=== PATIENT | female | born 1940 | race Caucasian/White ===

== ENCOUNTER 2016-11-22 13:04 | Outpatient (CLI) | payer MEDICARE ==
[2016-11-22 13:25] LABS: Bilirubin Negative (Negative); Blood, Urine Trace (Negative); Clarity Clear (Clear); Glucose, Urine (Dipstick) Negative (Negative); Leukocyte Small (Negative); Nitrite Positive (Negative); Protein, Urine (Dipstick) 100 mg/dL (Neg-Trace); Specific Gravity, Urine 1.015 (1.005-1.030); Urobilinogen 0.2 mg/dL (0.2-1.0); pH, Urine 8.5 (5.0-9.0)
[2016-11-22 13:30] LABS: #Basophils 0.1 thou/uL (0.0-0.2); #Eosinphils 0.1 thou/uL (0.0-0.7); #Lymphocytes 0.9 thou/uL (1.20-3.40); #Monocytes 0.3 thou/uL (0.11-0.59); #Neutrophils 5.2 thou/uL (1.40-6.50); %Basophils 0.8 % (0.0-1.0); %Lymphocytes 13.9 % (21.0-51.0); %Monocytes 5.2 % (0.0-10.0); %Neutrophils 79.1 % (42.0-75.0); Hemoglobin 10.2 g/dL (12.0-16.0); Mean Corpuscular HGB CONC 32.9 g/dL (32.0-36.0); Mean Corpuscular Hemoglobin 30.7 pg (27.0-31.0); Mean Corpuscular Volume 93.3 fl (81.0-99.0); Mean Platelet Volume 7.5 fL (7.4-10.4); Platelet Count 297 thou/uL (130-400); Red Blood Cell (RBC) Count 3.33 mill/uL (4.20-5.40); White Blood Cell (WBC) Count 6.6 thou/uL (4.8-10.8)
[2016-11-22 13:33] LABS: Bacteria/HPF 3+ HPF (None Seen); Squamous Epithelial 0-3 HPF (0-3)
[2016-11-22 13:39] LABS: Anion Gap 17 mmol/L (10-20); BUN (Urea Nitrogen) 30 mg/dL (9.8-20.1); Calc. Creatinine Clearance 0 mL/min (70-130); Calcium 9.6 mg/dL (7.8-10.44); Carbon Dioxide 27 mmol/L (23-31); Chloride 99 mmol/L (98-107); Estimated GFR-MDRD 19; Glucose 128 mg/dL (83-110); Phosphorus 3.2 mg/dL (2.3-4.7); Potassium 3.8 mmol/L (3.5-5.1); Sodium 139 mmol/L (136-145)
== END 2016-11-22 13:05 | disposition home or self-care (01) ==
LOC: MADLAB 13:04
DX: N17.9 Acute kidney failure, unspecified (principal)
CPT/HCPCS: 36415; 80069; 81001; 83970; 85025

== ENCOUNTER 2016-12-08 18:30 | Outpatient (CLI) | payer MEDICARE ==
[2016-12-08 18:43] LABS: Bilirubin Negative (Negative); Blood, Urine Trace (Negative); Clarity Clear (Clear); Glucose, Urine (Dipstick) Negative (Negative); Leukocyte Large (Negative); Nitrite Positive (Negative); Protein, Urine (Dipstick) 100 mg/dL (Neg-Trace); Specific Gravity, Urine 1.015 (1.005-1.030); Urobilinogen 0.2 mg/dL (0.2-1.0); pH, Urine 8.5 (5.0-9.0)
[2016-12-08 18:45] LABS: RBC/HPF 0-3 HPF (0-3)
[2016-12-08 18:46] LABS: Bacteria/HPF 1+ HPF (None Seen); Squamous Epithelial 0-3 HPF (0-3)
== END 2016-12-08 18:31 | disposition home or self-care (01) ==
LOC: MADLAB 18:30
PROVIDERS: ATTEND Family Medicine
DX: N39.0 Urinary tract infection, site not specified (principal)
CPT/HCPCS: 81001; 87077; 87086; 87186

== ENCOUNTER 2016-12-20 14:09 | Outpatient (CLI) | payer MEDICARE ==
[2016-12-20 15:01] LABS: Hemoglobin 8.5 g/dL (12.0-16.0); Mean Corpuscular HGB CONC 33.4 g/dL (32.0-36.0); Mean Corpuscular Hemoglobin 30.7 pg (27.0-31.0); Mean Platelet Volume 6.9 fL (7.4-10.4); Platelet Count 286 thou/uL (130-400); RBC Distribution Width 12.8 % (11.5-14.5); Red Blood Cell (RBC) Count 2.78 mill/uL (4.20-5.40); White Blood Cell (WBC) Count 4.8 thou/uL (4.8-10.8)
[2016-12-20 15:27] LABS: ALT (SGPT) 15 U/L (0-55); AST (SGOT) 22 U/L (5-34); Albumin 3.9 g/dL (3.4-4.8); Alkaline Phosphatase 83 U/L (40-150); Anion Gap 18 mmol/L (10-20); BUN (Urea Nitrogen) 33 mg/dL (9.8-20.1); Bilirubin, Total 0.3 mg/dL (0.2-1.2); Calc. Creatinine Clearance 0 mL/min (70-130); Calcium 8.4 mg/dL (7.8-10.44); Carbon Dioxide 24 mmol/L (23-31); Chloride 104 mmol/L (98-107); Estimated GFR-MDRD 20; Glucose 169 mg/dL (83-110); Potassium 4.2 mmol/L (3.5-5.1); Protein, Total 5.9 g/dL (5.8-8.1); Sodium 142 mmol/L (136-145)
[2016-12-25 21:07] LABS: Transglutaminase IgA ABS Less than 2 U/mL (0-3); Transglutaminase IgG ABS 10 U/mL (0-5)
== END 2016-12-20 14:10 | disposition home or self-care (01) ==
LOC: MADLAB 14:09
PROVIDERS: ATTEND Internal Medicine Gastroenterology
DX: D64.9 Anemia, unspecified (principal); K90.0 Celiac disease
CPT/HCPCS: 36415; 80053; 82607; 82728; 83516; 83540; 83550; 85027

== ENCOUNTER 2017-01-24 15:47 | Outpatient (CLI) | payer MEDICARE ==
[2017-01-24 16:31] LABS: #Lymphocytes 1.6 thou/uL (1.20-3.40); #Monocytes 0.5 thou/uL (0.11-0.59); #Neutrophils 2.8 thou/uL (1.40-6.50); %Eosinophils 0.8 % (0.0-10.0); %Lymphocytes 32.9 % (21.0-51.0); %Monocytes 9.7 % (0.0-10.0); %Neutrophils 55.6 % (42.0-75.0); Hemoglobin 8.9 g/dL (12.0-16.0); Mean Corpuscular HGB CONC 33.2 g/dL (32.0-36.0); Mean Corpuscular Hemoglobin 30.6 pg (27.0-31.0); Mean Corpuscular Volume 92.2 fl (81.0-99.0); Mean Platelet Volume 6.6 fL (7.4-10.4); Platelet Count 266 thou/uL (130-400); RBC Distribution Width 13.2 % (11.5-14.5); Red Blood Cell (RBC) Count 2.93 mill/uL (4.20-5.40); White Blood Cell (WBC) Count 4.9 thou/uL (4.8-10.8)
[2017-01-24 16:35] LABS: ALT (SGPT) 25 U/L (0-55); AST (SGOT) 34 U/L (5-34); Albumin 4.5 g/dL (3.4-4.8); Alkaline Phosphatase 95 U/L (40-150); Anion Gap 16 mmol/L (10-20); BUN (Urea Nitrogen) 37 mg/dL (9.8-20.1); Bilirubin, Total 0.3 mg/dL (0.2-1.2); Calc. Creatinine Clearance 0 mL/min (70-130); Calcium 8.9 mg/dL (7.8-10.44); Carbon Dioxide 23 mmol/L (23-31); Chloride 103 mmol/L (98-107); Estimated GFR-MDRD 20; Globulin 2.5 g/dL (2.4-3.5); Glucose 100 mg/dL (83-110); Potassium 4.2 mmol/L (3.5-5.1); Sodium 138 mmol/L (136-145)
== END 2017-01-24 15:48 ==
LOC: MADLABBHPM 15:47
PROVIDERS: ATTEND Family Medicine
DX: R60.9 Edema, unspecified (principal)
CPT/HCPCS: 80053; 85025

== ENCOUNTER 2017-02-23 10:40 | Emergency (ER) | payer MEDICARE ==
--- NOTE | 2017-02-23 11:41 | RAD ---
RIGHT KNEE FOUR VIEWS: History: Fall, injury, right knee pain. FINDINGS: There are post op changes and metallic hardware in the tibia. Acute fractures of the proximal tibia and fibula are seen with mild displacement. There are degenerative changes in the knee joint. IMPRESSION: Fractures of the proximal tibia and fibula. POS: [facility]
--- NOTE | 2017-02-23 11:42 | RAD ---
RIGHT LEG TWO VIEWS: History: Fall, injury, right leg pain. FINDINGS: There are post op changes and metallic hardware in the distal femur. There are mildly displaced frac tures involving the proximal right tibia and fibula. POS: [facility]
--- NOTE | 2017-02-23 11:51 | RAD ---
PORTABLE AP CHEST: Date: 02-23-17 History: Fracture right tibia and fibula. FINDINGS: Lungs remain hyperexpanded but clear. Nodular density is seen in the right midlung zone which is lik kinsey related to a nipple shadow. Similar symmetric bilateral findings are seen on the prior exam. How ever, follow up chest x-ray with nipple markers may be helpful for further evaluation. Lungs are oth erwise clear. There is osteopenia. IMPRESSION: 1. Hyperexpansion of the lungs which is similar to the prior study. No acute cardiopulmonary process is seen. 2. Nodular density projecting over the right midlung zone most likely attributable to a nipple shado w. Follow up chest x-ray with nipple markers in place is recommended. POS: [facility]
[2017-02-23] MEDS ORDERED: Morphine Sulfate 2 MG/ML SYRINGE ONE (11:57)
[2017-02-23 12:10] LABS: #Monocytes 0.6 thou/uL (0.11-0.59); #Neutrophils 7.2 thou/uL (1.40-6.50); %Basophils 0.5 % (0.0-1.0); %Eosinophils 0.3 % (0.0-10.0); %Lymphocytes 11.6 % (21.0-51.0); %Monocytes 6.7 % (0.0-10.0); %Neutrophils 80.9 % (42.0-75.0); Hemoglobin 7.9 g/dL (12.0-16.0); Mean Corpuscular Hemoglobin 32.4 pg (27.0-31.0); Mean Corpuscular Volume 95.3 fl (81.0-99.0); Mean Platelet Volume 5.5 fL (7.4-10.4); Platelet Count 207 thou/uL (130-400); RBC Distribution Width 13.7 % (11.5-14.5); Red Blood Cell (RBC) Count 2.44 mill/uL (4.20-5.40); White Blood Cell (WBC) Count 8.9 thou/uL (4.8-10.8)
[2017-02-23 12:28] LABS: CKMB 2.2 ng/mL (0-6.6); Troponin I 0.087 ng/mL (< 0.028)
[2017-02-23 13:00] LABS: ALT (SGPT) 17 U/L (0-55); AST (SGOT) 24 U/L (5-34); Albumin 4.3 g/dL (3.4-4.8); Alkaline Phosphatase 87 U/L (40-150); Anion Gap 20 mmol/L (10-20); BUN (Urea Nitrogen) 87 mg/dL (9.8-20.1); Bilirubin, Total 0.4 mg/dL (0.2-1.2); Calc. Creatinine Clearance 0 mL/min (70-130); Calcium 8.8 mg/dL (7.8-10.44); Carbon Dioxide 19 mmol/L (23-31); Chloride 104 mmol/L (98-107); Estimated GFR-MDRD 17; Globulin 2.4 g/dL (2.4-3.5); Glucose 152 mg/dL (83-110); Potassium 6.2 mmol/L (3.5-5.1); Protein, Total 6.7 g/dL (5.8-8.1); Sodium 137 mmol/L (136-145)
[2017-02-23 13:17] LABS: Bilirubin Negative (Negative); Blood, Urine Negative (Negative); Clarity Clear (Clear); Glucose, Urine (Dipstick) Negative (Negative); Leukocyte Negative (Negative); Nitrite Negative (Negative); Protein, Urine (Dipstick) Trace mg/dL (Neg-Trace); Urobilinogen 0.2 mg/dL (0.2-1.0)
== END 2017-02-23 12:33 | disposition short-term general hospital (02) ==
LOC: MADERS 10:40
DX: S82.101A Unspecified fracture of upper end of right tibia, initial encounter for closed fracture (principal); S82.831A Other fracture of upper and lower end of right fibula, initial encounter for closed fracture; I10 Essential (primary) hypertension; W05.0XXA Fall from non-moving wheelchair, initial encounter
CPT/HCPCS: 36415; 51702; 71010; 80053; 81003; 82553; 84484; 85025; 93005; 96374; J2270

== ENCOUNTER 2017-02-28 18:42 | Inpatient (IN) | payer MEDICARE ==
[2017-02-28] MEDS ORDERED: clonazePAM 0.5 MG TAB PO PRN (21:01)
[2017-02-28] MEDS ORDERED: Docusate 100 MG CAP PO PRN (21:15)
[2017-02-28] MEDS ORDERED: Ascorbic Acid 500 mg Chewable Tablet PO SCH (21:45)
[2017-02-28] MEDS ORDERED: Acetaminophen 500 MG TAB PO PRN (22:43)
[2017-02-28] MEDS: traMADol HCl 50 MG TAB PO PRN (23:24)
[2017-02-28] MEDS ORDERED: Acetaminophen 500 MG TAB PO SCH (23:59)
[2017-03-01] MEDS: traMADol HCl 50 MG TAB PO PRN ×5 (04:25→21:44)
[2017-03-01] MEDS: Ondansetron ODT 4 MG TAB PO PRN (04:44)
[2017-03-01] MEDS: Ascorbic Acid 500 mg Chewable Tablet PO SCH ×2 (08:49→20:22)
[2017-03-01] MEDS: Lisinopril 10 MG TAB PO SCH (08:50)
[2017-03-01] MEDS: Ferrous Sulfate 325 MG TAB PO SCH ×2 (08:50→17:41)
[2017-03-01] MEDS ORDERED: traMADol HCl 50 MG TAB PO SCH (09:00)
[2017-03-01] MEDS ORDERED: Mirabegron [Myrbetriq] 50 MG PO SCH (09:00)
[2017-03-01] MEDS ORDERED: Docusate 100 MG CAP PO SCH (09:00)
[2017-03-01] MEDS: METHOCARBAMOL PO PRN ×3 (11:18→20:23)
--- NOTE | 2017-03-01 15:48 | HP ---
DATE OF ADMISSION: 02/28/2017 CHIEF COMPLAINT: Right proximal tibia fracture. HISTORY OF PRESENT ILLNESS: This is a 76-year-old female who is known to my practice that sustained a fall at home on 02/23/2017. The patient was seen in [facility] and transferred to [facility] after being found to have a right proximal tibial fracture. The patient was seen by Dr. Floyd in the emergency room, who deemed the fracture to be unstable and therefore requiring open reduction and internal fixation. The patient went for surgery on 02/24/2017 and had no complications. The patient was maintained on a GRAIN BLENDER pump in the postoperative period for pain control, which was stopped about 24 hours prior to admission here. The patient was then started back on her usual home regimen of tramadol and robaxin. She reports her pain has been uncontrolled. She has been admitted here today to [facility] swing bed for planned physical therapy and occupational therapy. The patient's postoperative course otherwise has been unremarkable. Of note, upon admission to [facility], the patient was found to have acute hyperkalemia with potassium of 6.8 that has since normalized to 3.8 as of 02/28/2017. Additionally, the patient was found to have acute kidney injury with creatinine of 2.85 on 02/23/2017 that has since improved to 1.42. That is near her baseline of chronic kidney disease. The patient states she has been eating well, but continues with her chronic nausea and abdominal pain that is being followed by outpatient director instructional material. She has been having regular bowel movements and tolerating a diet. She has started working with physical therapy since her surgery, but unfortunately is nonweightbearing on the right lower extremity for anticipated duration of 6 weeks. PAST MEDICAL HISTORY: 1. Celiac disease. 2. Hypertension. 3. Osteoarthritis. 4. Urinary incontinence. 5. Esophageal spasms and dysmotility. 6. Failure to thrive. 7. Chronic kidney disease stage 3 secondary to age related nephrosclerosis. 8. History of 6 mm lung nodule found on CT scan in 10/2016. 9. Anxiety. 10. Insomnia. PAST SURGICAL HISTORY: Right proximal tibia open reduction and internal fixation performed on 02/24/2017. Denies any other past surgical history. ALLERGIES: Patient is allergic to CODEINE, LEVOFLOXACIN and MEPERIDINE. FAMILY HISTORY: Noncontributory. SOCIAL HISTORY: The patient lives with her daughter Yong torres, who is a nurse. She is a nonsmoker. She does not drink alcohol or use illicit drugs. She is . She has advanced directives in place of the daughter, will be bringing to the hospital today. She is FULL CODE. MEDICATIONS: 1. Promethazine 25 mg twice daily as needed. 2. Clonidine 0.2 mg daily as needed for systolic blood pressure greater than 160. 3. Zofran 8 mg every 6 hours as needed for nausea, vomiting. 4. Clonazepam 0.5 mg twice daily as needed for anxiety. 5. Tramadol 100 mg 4 times daily as needed for pain. 6. Robaxin 750 mg every 4 hours as needed for pain. 7. Pantoprazole 40 mg twice daily. 8. Hydralazine 25 mg 4 times daily. 9. Amlodipine 5 mg once daily. 10. Metoclopramide 5 mg 4 times daily. 11. Lisinopril 10 mg once daily. 12. Myrbetriq 50 mg once daily. 13. Zolpidem 5 mg once nightly. REVIEW OF SYSTEMS: GENERAL: Denies any fever, chills, weight changes, night sweats. HEENT: Denies any headache, blurry vision, sore throat, runny nose, otalgia. CARDIOVASCULAR: Denies any chest pain, shortness of breath. Positive for edema to bilateral feet. RESPIRATORY: Denies any cough, shortness of breath or wheezing. GASTROINTESTINAL: Positive for chronic nausea. Denies any vomiting, denies any diarrhea or constipation. Denies any blood in her stool. GENITOURINARY: Positive for chronic urinary incontinence. Denies any dysuria or malodorous urine. Denies any hematuria. MUSCULOSKELETAL: Positive for joint pain and neck pain as well as difficulty walking. ENDOCRINOLOGY: Denies any heat or cold intolerance. HEMATOLOGY: Denies any easy bruising or easy bleeding. NEUROLOGIC: Denies any seizure activity or syncope. Denies weakness. PHYSICAL EXAMINATION: VITAL SIGNS: Temperature is 98.1, blood pressure is 147/71, heart rate is 79, respirations are 18, O2 saturation is between 93%-95% on room air. GENERAL: The patient is alert and oriented x3. She is in no apparent distress. She is resting comfortably in her wheelchair. She is cooperative and communicative, no family is at the bedside. HEENT: Pupils are equally round and reactive to light. Extraocular movements are intact. Sclerae nonicteric, conjunctivae nonhyperemic. Oropharynx is moist without erythema or exudates. NECK: Supple, with full range of motion. No thyromegaly. Negative for carotid bruits. CARDIOVASCULAR: Heart is regular rate and rhythm with no murmurs. EXTREMITIES: Positive for 1+ pitting edema to bilateral feet. RESPIRATORY: No distress. LUNGS: Clear to auscultation bilaterally with adequate aeration in equal excursion. GASTROINTESTINAL: Positive for mild distention. Positive for normoactive bowel sounds. ABDOMEN: Nontender to palpation. Negative for rebound or guarding. EXTREMITIES: Right knee with three different incisions with sutures appreciated , wound is clean, dry, and intact without drainage. Positive for some local ecchymosis to the area. NEUROLOGIC: Cranial nerves II-XII are grossly intact. No focal deficits. LABORATORY AND IMAGIN02/28/2017 white blood cell count 5.2, hemoglobin of 8.1, hematocrit 25.2, platelets 169. Sodium 134, potassium 3.8, chloride 94, bicarbonate 33, BUN 33, creatinine 1.42, GFR of 82. Tib-fib x-ray on 2016 indicated mildly displaced fractures involving the proximal right tibia and fibula with knee x-ray, indicating normal placement of the lateral plate and screws transfixing the proximal tibia that was done intraoperatively. ASSESSMENT AND PLAN: This is a 76-year-old female that sustained a ground level fall on 03/2017 resulting in right proximal tibial fracture requiring open reduction and internal fixation on 02/24/2017 and is now admitted to [facility] bed for skilled PT/OT. 1. Status post right tibial fracture with open reduction and internal fixation. The patient will be admitted to this swing bed for planned physical therapy and occupational therapy. The patient is to be toe touch only on the right lower extremity with weightbearing to all other extremities. We will mobilize as able. Fall precautions have been set in place. The patient will have suture removal on 03/06/2017 with follow up with Dr. Floyd in 2-3 weeks. We have placed a fentanyl patch to assist with improved pain control. 2. Acute on chronic kidney disease. The patient initially had acute kidney injury upon admission to [facility]. This has since normalized with IV fluids. We will continue to monitor and avoid nephrotoxic agents. 3. Hyperkalemia. This was found upon admission on 02/23/2017 to [facility]. This has also since corrected and we will continue to monitor. 4. Hypertension. The patient will continue on her home blood pressure medications. She is currently well controlled. 5. Esophageal dysmotility and spasm with chronic nausea. The patient will be continued on her home dose of Reglan and Protonix. We will continue to make Phenergan and Zofran available to her as needed. This is a chronic issue for the patient that is being followed by Dr. Doyle on an outpatient basis. 6. Anxiety. The patient has benefited from clonazepam as needed at home and we will continue this on an inpatient basis. She has not had any side effects or issues with the medication thus far. 7. Chronic insomnia. We will continue the patient on her home dose of Ambien. 8. Urinary incontinence. The patient was recently seen by Urology and started on Myrbetriq. Unfortunately, this medication is not available on formulary and the family will be bringing from home for her to continue while inpatient. 9. History of celiac disease with failure to thrive. We will continue the patient on a gluten free diet and meal supplements with dietary consult pending. 10. History of osteoarthritis and chronic musculoskeletal pain. The patient has been continued on her home tramadol and Robaxin doses. We have also placed a fentanyl patch in an effort to get her acute pain under better control, although I do anticipate that she may require this upon discharge as well due to her pain being uncontrolled prior to this injury. 11. Anemia of chronic disease: Stable as of last CBC on 02/28/17. We will repeat labs in two doses. She did receive transfusion while in [place]. Will anticipate transfusion only if Hg drops below 7. 12. Deep venous thrombosis prophylaxis. The patient has been placed on SCDs. CODE STATUS: FULL. MTDD
[2017-03-02] MEDS: traMADol HCl 50 MG TAB PO PRN ×5 (02:27→23:52)
[2017-03-02] MEDS: Ascorbic Acid 500 mg Chewable Tablet PO SCH ×2 (08:13→21:17)
[2017-03-02] MEDS: Lisinopril 10 MG TAB PO SCH (08:13)
[2017-03-02] MEDS: Ferrous Sulfate 325 MG TAB PO SCH ×2 (08:13→18:54)
[2017-03-02] MEDS: METHOCARBAMOL PO PRN ×3 (10:05→21:32)
[2017-03-02] MEDS ORDERED: Diazepam 2 MG TAB PO SCH (13:15)
[2017-03-02] MEDS ORDERED: Diazepam 5 MG TAB PO SCH (14:15)
[2017-03-03] MEDS: METHOCARBAMOL PO PRN ×5 (01:22→21:53)
[2017-03-03 04:52] LABS: #Basophils 0.1 thou/uL (0.0-0.2); #Eosinphils 0.2 thou/uL (0.0-0.7); #Lymphocytes 1.7 thou/uL (1.20-3.40); #Monocytes 0.7 thou/uL (0.11-0.59); #Neutrophils 3.5 thou/uL (1.40-6.50); %Eosinophils 3.1 % (0.0-10.0); %Lymphocytes 27.5 % (21.0-51.0); %Monocytes 11.4 % (0.0-10.0); Hemoglobin 7.8 g/dL (12.0-16.0); Mean Corpuscular HGB CONC 33.3 g/dL (32.0-36.0); Mean Corpuscular Hemoglobin 31.2 pg (27.0-31.0); Mean Corpuscular Volume 93.5 fl (81.0-99.0); Mean Platelet Volume 6.7 fL (7.4-10.4); Platelet Count 215 thou/uL (130-400); RBC Distribution Width 13.5 % (11.5-14.5); Red Blood Cell (RBC) Count 2.51 mill/uL (4.20-5.40); White Blood Cell (WBC) Count 6.2 thou/uL (4.8-10.8)
[2017-03-03] MEDS: traMADol HCl 50 MG TAB PO PRN ×5 (04:59→21:56)
[2017-03-03 05:10] LABS: ALT (SGPT) 14 U/L (0-55); AST (SGOT) 39 U/L (5-34); Albumin 2.8 g/dL (3.4-4.8); Alkaline Phosphatase 98 U/L (40-150); Anion Gap 16 mmol/L (10-20); BUN (Urea Nitrogen) 42 mg/dL (9.8-20.1); Bilirubin, Total 0.4 mg/dL (0.2-1.2); Calc. Creatinine Clearance 20 mL/min (70-130); Calcium 8.2 mg/dL (7.8-10.44); Carbon Dioxide 29 mmol/L (23-31); Chloride 98 mmol/L (98-107); Estimated GFR-MDRD 28; Globulin 1.9 g/dL (2.4-3.5); Glucose 89 mg/dL (83-110); Potassium 4.6 mmol/L (3.5-5.1); Protein, Total 4.7 g/dL (5.8-8.1); Sodium 138 mmol/L (136-145)
[2017-03-03] MEDS: Ascorbic Acid 500 mg Chewable Tablet PO SCH ×2 (08:28→21:49)
[2017-03-03] MEDS: Lisinopril 10 MG TAB PO SCH (08:29)
[2017-03-03] MEDS: Ferrous Sulfate 325 MG TAB PO SCH ×2 (08:30→17:19)
[2017-03-03] MEDS ORDERED: Diazepam 2 MG TAB PO PRN (11:05)
[2017-03-03] MEDS: Diazepam 5 MG TAB PO PRN ×2 (11:23→19:37)
[2017-03-03] MEDS: Docusate 100 MG CAP PO SCH (21:50)
[2017-03-04] MEDS: Proctozone-HC 2.5% Cream 30 GM TUBE PR SCH ×3 (03:10→21:05)
[2017-03-04] MEDS: traMADol HCl 50 MG TAB PO PRN ×5 (04:17→23:17)
[2017-03-04] MEDS: Ferrous Sulfate 325 MG TAB PO SCH ×2 (08:26→17:29)
[2017-03-04] MEDS: Ascorbic Acid 500 mg Chewable Tablet PO SCH ×2 (08:27→21:04)
[2017-03-04] MEDS: Docusate 100 MG CAP PO SCH ×2 (08:27→21:04)
[2017-03-04] MEDS: Lisinopril 10 MG TAB PO SCH (08:28)
[2017-03-04] MEDS: Diazepam 5 MG TAB PO PRN ×2 (10:53→19:39)
[2017-03-04] MEDS: METHOCARBAMOL PO PRN ×3 (12:18→21:06)
[2017-03-05] MEDS: METHOCARBAMOL PO PRN ×2 (03:30→13:33)
[2017-03-05] MEDS: traMADol HCl 50 MG TAB PO PRN ×4 (06:12→21:16)
[2017-03-05] MEDS: cloNIDine HCl 0.1 MG TAB PO PRN (06:28)
[2017-03-05] MEDS ORDERED: Mag-Al Plus 1200 MG/1200 MG/120 MG/30 ML UDCUP PO SCH (07:45)
[2017-03-05 08:12] LABS: Anion Gap 17 mmol/L (10-20); BUN (Urea Nitrogen) 54 mg/dL (9.8-20.1); Calc. Creatinine Clearance 20 mL/min (70-130); Carbon Dioxide 24 mmol/L (23-31); Chloride 99 mmol/L (98-107); Estimated GFR-MDRD 28; Glucose 113 mg/dL (83-110); Potassium 4.3 mmol/L (3.5-5.1); Sodium 136 mmol/L (136-145)
[2017-03-05 08:23] LABS: #Eosinphils 0.2 thou/uL (0.0-0.7); #Lymphocytes 1.2 thou/uL (1.20-3.40); #Monocytes 0.7 thou/uL (0.11-0.59); #Neutrophils 3.3 thou/uL (1.40-6.50); %Basophils 0.7 % (0.0-1.0); %Lymphocytes 21.5 % (21.0-51.0); %Monocytes 12.9 % (0.0-10.0); %Neutrophils 60.8 % (42.0-75.0); Hemoglobin 7.2 g/dL (12.0-16.0); Mean Corpuscular HGB CONC 33.1 g/dL (32.0-36.0); Mean Corpuscular Hemoglobin 30.9 pg (27.0-31.0); Mean Corpuscular Volume 93.3 fl (81.0-99.0); Mean Platelet Volume 6.2 fL (7.4-10.4); Platelet Count 250 thou/uL (130-400); RBC Distribution Width 13.3 % (11.5-14.5); Red Blood Cell (RBC) Count 2.34 mill/uL (4.20-5.40); White Blood Cell (WBC) Count 5.4 thou/uL (4.8-10.8)
[2017-03-05] MEDS: Ferrous Sulfate 325 MG TAB PO SCH ×2 (09:40→17:06)
[2017-03-05] MEDS: Docusate 100 MG CAP PO SCH ×2 (09:41→21:18)
[2017-03-05] MEDS: Lisinopril 10 MG TAB PO SCH (09:41)
[2017-03-05] MEDS: Ascorbic Acid 500 mg Chewable Tablet PO SCH ×2 (09:41→21:17)
[2017-03-05] MEDS: Proctozone-HC 2.5% Cream 30 GM TUBE PR SCH (09:42)
[2017-03-05] MEDS: Diazepam 5 MG TAB PO PRN ×2 (13:33→23:51)
[2017-03-05] MEDS: Zolpidem Tartrate 5 MG TAB PO PRN (21:17)
[2017-03-06] MEDS: Proctozone-HC 2.5% Cream 30 GM TUBE PR SCH ×2 (00:05→21:52)
[2017-03-06] MEDS: traMADol HCl 50 MG TAB PO PRN ×4 (05:20→23:46)
[2017-03-06] MEDS: METHOCARBAMOL PO PRN ×2 (06:02→14:46)
[2017-03-06] MEDS: Diazepam 5 MG TAB PO PRN ×2 (07:25→17:15)
[2017-03-06] MEDS: Ferrous Sulfate 325 MG TAB PO SCH ×2 (07:25→17:15)
[2017-03-06] MEDS: Ascorbic Acid 500 mg Chewable Tablet PO SCH ×2 (09:41→21:53)
[2017-03-06] MEDS: Docusate 100 MG CAP PO SCH ×3 (09:42→21:56)
[2017-03-06] MEDS: Lisinopril 10 MG TAB PO SCH (09:42)
[2017-03-07] MEDS: METHOCARBAMOL PO PRN ×5 (01:28→23:09)
[2017-03-07] MEDS: Diazepam 5 MG TAB PO PRN ×2 (01:29→21:18)
[2017-03-07] MEDS: Zolpidem Tartrate 5 MG TAB PO PRN (01:29)
[2017-03-07] MEDS: Ferrous Sulfate 325 MG TAB PO SCH ×2 (08:47→17:31)
[2017-03-07] MEDS: Ascorbic Acid 500 mg Chewable Tablet PO SCH ×2 (08:48→17:31)
[2017-03-07] MEDS: Docusate 100 MG CAP PO SCH ×2 (08:48→21:16)
[2017-03-07] MEDS: Lisinopril 10 MG TAB PO SCH (08:48)
[2017-03-07] MEDS: traMADol HCl 50 MG TAB PO PRN ×4 (08:51→21:16)
[2017-03-07] MEDS: Proctozone-HC 2.5% Cream 30 GM TUBE PR SCH (21:20)
[2017-03-08] MEDS: traMADol HCl 50 MG TAB PO PRN ×4 (01:35→22:46)
[2017-03-08] MEDS: Lisinopril 10 MG TAB PO SCH (08:55)
[2017-03-08] MEDS: Docusate 100 MG CAP PO SCH ×2 (08:55→21:32)
[2017-03-08] MEDS: Ascorbic Acid 500 mg Chewable Tablet PO SCH ×2 (08:55→17:45)
[2017-03-08] MEDS: Proctozone-HC 2.5% Cream 30 GM TUBE PR SCH ×2 (08:56→22:47)
[2017-03-08] MEDS: Ferrous Sulfate 325 MG TAB PO SCH ×2 (08:56→17:45)
[2017-03-08] MEDS: METHOCARBAMOL PO PRN ×2 (14:55→22:48)
[2017-03-08] MEDS: Diazepam 5 MG TAB PO PRN (17:44)
[2017-03-09] MEDS: traMADol HCl 50 MG TAB PO PRN ×4 (07:09→20:52)
[2017-03-09] MEDS: METHOCARBAMOL PO PRN ×2 (07:10→16:50)
[2017-03-09] MEDS: Ascorbic Acid 500 mg Chewable Tablet PO SCH ×2 (09:51→16:17)
[2017-03-09] MEDS: Ferrous Sulfate 325 MG TAB PO SCH ×2 (09:51→16:21)
[2017-03-09] MEDS: Proctozone-HC 2.5% Cream 30 GM TUBE PR SCH ×4 (09:51→20:45)
[2017-03-09] MEDS: Docusate 100 MG CAP PO SCH ×3 (09:52→20:46)
[2017-03-09] MEDS: Lisinopril 10 MG TAB PO SCH (09:53)
[2017-03-09] MEDS: Ondansetron ODT 4 MG TAB PO PRN (09:59)
[2017-03-09] MEDS: Diazepam 5 MG TAB PO PRN ×2 (10:00→20:44)
[2017-03-10] MEDS: METHOCARBAMOL PO PRN ×2 (03:10→10:56)
[2017-03-10] MEDS: traMADol HCl 50 MG TAB PO PRN ×4 (04:49→20:25)
[2017-03-10] MEDS: Ascorbic Acid 500 mg Chewable Tablet PO SCH ×2 (08:32→16:24)
[2017-03-10] MEDS: Lisinopril 10 MG TAB PO SCH (08:34)
[2017-03-10] MEDS: Docusate 100 MG CAP PO SCH ×2 (08:36→20:22)
[2017-03-10] MEDS: Proctozone-HC 2.5% Cream 30 GM TUBE PR SCH ×2 (08:38→20:22)
[2017-03-10] MEDS: Ferrous Sulfate 325 MG TAB PO SCH ×2 (08:38→16:24)
[2017-03-10] MEDS: Diazepam 5 MG TAB PO PRN ×2 (10:21→20:21)
[2017-03-10] MEDS: fentaNYL 50 mcg/hour Patch TD SCH (15:47)
[2017-03-11] MEDS: traMADol HCl 50 MG TAB PO PRN ×4 (03:47→23:26)
[2017-03-11] MEDS: Docusate 100 MG CAP PO SCH ×2 (10:09→20:28)
[2017-03-11] MEDS: Ascorbic Acid 500 mg Chewable Tablet PO SCH ×2 (10:09→17:36)
[2017-03-11] MEDS: Ferrous Sulfate 325 MG TAB PO SCH ×2 (10:09→17:36)
[2017-03-11] MEDS: Lisinopril 10 MG TAB PO SCH (10:10)
[2017-03-11] MEDS: Proctozone-HC 2.5% Cream 30 GM TUBE PR SCH ×2 (10:20→20:28)
[2017-03-11] MEDS: Diazepam 5 MG TAB PO PRN ×2 (12:00→17:37)
[2017-03-11] MEDS: METHOCARBAMOL PO PRN (20:28)
[2017-03-12] MEDS: Diazepam 5 MG TAB PO PRN (01:31)
[2017-03-12] MEDS: traMADol HCl 50 MG TAB PO PRN ×3 (04:39→21:34)
[2017-03-12] MEDS: Lisinopril 10 MG TAB PO SCH (09:09)
[2017-03-12] MEDS: Ascorbic Acid 500 mg Chewable Tablet PO SCH ×2 (09:10→17:20)
[2017-03-12] MEDS: Docusate 100 MG CAP PO SCH ×2 (09:10→20:36)
[2017-03-12] MEDS: Ferrous Sulfate 325 MG TAB PO SCH ×2 (09:10→17:20)
[2017-03-12] MEDS: Proctozone-HC 2.5% Cream 30 GM TUBE PR SCH ×2 (09:11→20:36)
[2017-03-12] MEDS ORDERED: Mag-Al Plus 1200 MG/1200 MG/120 MG/30 ML UDCUP PO SCH (19:00)
[2017-03-12] MEDS: cloNIDine HCl 0.1 MG TAB PO PRN (20:34)
[2017-03-12] MEDS: METHOCARBAMOL PO PRN (23:46)
[2017-03-13] MEDS: traMADol HCl 50 MG TAB PO PRN ×3 (01:38→22:54)
[2017-03-13] MEDS: Ascorbic Acid 500 mg Chewable Tablet PO SCH ×2 (09:03→17:14)
[2017-03-13] MEDS: Lisinopril 10 MG TAB PO SCH (09:04)
[2017-03-13] MEDS: Docusate 100 MG CAP PO SCH ×2 (09:04→20:48)
[2017-03-13] MEDS: Ferrous Sulfate 325 MG TAB PO SCH ×2 (09:04→17:15)
[2017-03-13] MEDS: Proctozone-HC 2.5% Cream 30 GM TUBE PR SCH ×2 (09:05→20:49)
[2017-03-13] MEDS: fentaNYL 50 mcg/hour Patch TD SCH (14:39)
[2017-03-13] MEDS: METHOCARBAMOL PO PRN (17:18)
[2017-03-13] MEDS: Diazepam 5 MG TAB PO PRN (19:54)
[2017-03-14] MEDS ORDERED: Mag-Al Plus 1200 MG/1200 MG/120 MG/30 ML UDCUP PO PRN (08:16)
[2017-03-14] MEDS: Ferrous Sulfate 325 MG TAB PO SCH ×2 (08:33→16:04)
[2017-03-14] MEDS: Ascorbic Acid 500 mg Chewable Tablet PO SCH ×2 (08:33→16:05)
[2017-03-14] MEDS: Lisinopril 10 MG TAB PO SCH (08:35)
[2017-03-14] MEDS: Proctozone-HC 2.5% Cream 30 GM TUBE PR SCH ×2 (08:37→21:19)
[2017-03-14] MEDS: Docusate 100 MG CAP PO SCH ×2 (08:37→21:18)
[2017-03-14] MEDS: traMADol HCl 50 MG TAB PO PRN ×2 (08:43→21:24)
[2017-03-14] MEDS ORDERED: Zolpidem Tartrate 5 MG TAB PO PRN (09:57)
[2017-03-14] MEDS: Diazepam 5 MG TAB PO PRN (17:56)
[2017-03-15] MEDS: traMADol HCl 50 MG TAB PO PRN ×2 (04:48→21:58)
[2017-03-15 05:02] LABS: #Basophils 0.1 thou/uL (0.0-0.2); #Eosinphils 0.2 thou/uL (0.0-0.7); #Lymphocytes 1.8 thou/uL (1.20-3.40); #Monocytes 0.5 thou/uL (0.11-0.59); #Neutrophils 3.1 thou/uL (1.40-6.50); %Basophils 0.9 % (0.0-1.0); %Eosinophils 2.9 % (0.0-10.0); %Lymphocytes 32.5 % (21.0-51.0); %Monocytes 9.5 % (0.0-10.0); %Neutrophils 54.3 % (42.0-75.0); Hemoglobin 7.8 g/dL (12.0-16.0); Mean Corpuscular HGB CONC 33.6 g/dL (32.0-36.0); Mean Corpuscular Hemoglobin 31.1 pg (27.0-31.0); Mean Corpuscular Volume 92.8 fl (81.0-99.0); Mean Platelet Volume 6.1 fL (7.4-10.4); Platelet Count 306 thou/uL (130-400); RBC Distribution Width 12.9 % (11.5-14.5); Red Blood Cell (RBC) Count 2.49 mill/uL (4.20-5.40); White Blood Cell (WBC) Count 5.6 thou/uL (4.8-10.8)
[2017-03-15 05:19] LABS: Anion Gap 18 mmol/L (10-20); BUN (Urea Nitrogen) 91 mg/dL (9.8-20.1); Calc. Creatinine Clearance 14 mL/min (70-130); Calcium 8.9 mg/dL (7.8-10.44); Carbon Dioxide 20 mmol/L (23-31); Chloride 101 mmol/L (98-107); Estimated GFR-MDRD 19; Glucose 95 mg/dL (83-110); Potassium 4.4 mmol/L (3.5-5.1); Sodium 135 mmol/L (136-145)
[2017-03-15] MEDS: Ferrous Sulfate 325 MG TAB PO SCH ×2 (08:16→17:11)
[2017-03-15] MEDS: Docusate 100 MG CAP PO SCH ×3 (08:17→22:00)
[2017-03-15] MEDS: Lisinopril 10 MG TAB PO SCH (08:17)
[2017-03-15] MEDS: Ascorbic Acid 500 mg Chewable Tablet PO SCH ×2 (08:17→17:11)
[2017-03-15] MEDS: METHOCARBAMOL PO PRN (08:18)
[2017-03-15] MEDS: Proctozone-HC 2.5% Cream 30 GM TUBE PR SCH (08:19)
[2017-03-15] MEDS: Diazepam 5 MG TAB PO PRN (11:46)
[2017-03-16] MEDS: Proctozone-HC 2.5% Cream 30 GM TUBE PR SCH ×3 (07:09→20:36)
[2017-03-16] MEDS: Docusate 100 MG CAP PO SCH ×2 (08:21→20:36)
[2017-03-16] MEDS: Ascorbic Acid 500 mg Chewable Tablet PO SCH ×2 (08:22→18:15)
[2017-03-16] MEDS: Lisinopril 10 MG TAB PO SCH (08:22)
[2017-03-16] MEDS: traMADol HCl 50 MG TAB PO PRN ×3 (08:23→20:35)
[2017-03-16] MEDS: Ferrous Sulfate 325 MG TAB PO SCH ×2 (08:23→18:14)
[2017-03-16] MEDS: Diazepam 5 MG TAB PO PRN (11:18)
[2017-03-16] MEDS: fentaNYL 50 mcg/hour Patch TD SCH (15:02)
[2017-03-17] MEDS: Docusate 100 MG CAP PO SCH ×2 (08:51→20:36)
[2017-03-17] MEDS: Lisinopril 10 MG TAB PO SCH (08:52)
[2017-03-17] MEDS: Ascorbic Acid 500 mg Chewable Tablet PO SCH ×2 (08:52→16:46)
[2017-03-17] MEDS: Proctozone-HC 2.5% Cream 30 GM TUBE PR SCH ×2 (08:53→20:37)
[2017-03-17] MEDS: Ferrous Sulfate 325 MG TAB PO SCH ×2 (08:53→16:46)
[2017-03-17] MEDS: traMADol HCl 50 MG TAB PO PRN ×3 (09:26→21:19)
[2017-03-17] MEDS: METHOCARBAMOL PO PRN (16:47)
[2017-03-18] MEDS: Lisinopril 10 MG TAB PO SCH (09:18)
[2017-03-18] MEDS: Ascorbic Acid 500 mg Chewable Tablet PO SCH ×2 (09:18→17:21)
[2017-03-18] MEDS: Ferrous Sulfate 325 MG TAB PO SCH ×2 (09:19→17:24)
[2017-03-18] MEDS: traMADol HCl 50 MG TAB PO PRN ×2 (09:19→20:49)
[2017-03-18] MEDS: Docusate 100 MG CAP PO SCH ×2 (09:19→20:42)
[2017-03-18] MEDS: Proctozone-HC 2.5% Cream 30 GM TUBE PR SCH ×2 (09:20→20:41)
[2017-03-18] MEDS: Diazepam 5 MG TAB PO PRN (20:50)
[2017-03-19] MEDS: traMADol HCl 50 MG TAB PO PRN ×3 (03:47→21:01)
[2017-03-19] MEDS: Ascorbic Acid 500 mg Chewable Tablet PO SCH ×2 (08:20→16:06)
[2017-03-19] MEDS: Lisinopril 10 MG TAB PO SCH (08:23)
[2017-03-19] MEDS: Docusate 100 MG CAP PO SCH ×2 (08:23→23:01)
[2017-03-19] MEDS: Ferrous Sulfate 325 MG TAB PO SCH ×2 (08:23→16:07)
[2017-03-19] MEDS: Proctozone-HC 2.5% Cream 30 GM TUBE PR SCH ×2 (08:24→21:03)
[2017-03-19] MEDS: Diazepam 5 MG TAB PO PRN (14:55)
[2017-03-19] MEDS: fentaNYL 50 mcg/hour Patch TD SCH (14:56)
[2017-03-20] MEDS: Ferrous Sulfate 325 MG TAB PO SCH ×2 (09:26→17:50)
[2017-03-20] MEDS: Ascorbic Acid 500 mg Chewable Tablet PO SCH ×2 (09:26→17:50)
[2017-03-20] MEDS: Lisinopril 10 MG TAB PO SCH (09:29)
[2017-03-20] MEDS: traMADol HCl 50 MG TAB PO PRN ×2 (09:30→13:32)
[2017-03-20] MEDS: Docusate 100 MG CAP PO SCH ×2 (09:34→12:26)
[2017-03-20] MEDS: Proctozone-HC 2.5% Cream 30 GM TUBE PR SCH ×2 (09:36→20:43)
[2017-03-20] MEDS ORDERED: fentaNYL 50 mcg/hour Patch TD SCH (17:15)
[2017-03-21] MEDS: traMADol HCl 50 MG TAB PO PRN ×3 (00:22→23:14)
[2017-03-21] MEDS: Diazepam 5 MG TAB PO PRN ×2 (03:57→23:17)
[2017-03-21] MEDS: Lisinopril 10 MG TAB PO SCH (08:32)
[2017-03-21] MEDS: Ascorbic Acid 500 mg Chewable Tablet PO SCH ×2 (08:32→17:25)
[2017-03-21] MEDS: Ferrous Sulfate 325 MG TAB PO SCH ×2 (08:32→17:25)
[2017-03-21] MEDS: Docusate 100 MG CAP PO SCH ×2 (08:33→20:53)
[2017-03-21] MEDS: Proctozone-HC 2.5% Cream 30 GM TUBE PR SCH ×2 (08:34→20:54)
[2017-03-22] MEDS: Ferrous Sulfate 325 MG TAB PO SCH ×2 (08:40→16:53)
[2017-03-22] MEDS: Docusate 100 MG CAP PO SCH ×2 (08:41→21:06)
[2017-03-22] MEDS: Lisinopril 10 MG TAB PO SCH (08:41)
[2017-03-22] MEDS: Ascorbic Acid 500 mg Chewable Tablet PO SCH ×2 (08:42→16:53)
[2017-03-22] MEDS: Proctozone-HC 2.5% Cream 30 GM TUBE PR SCH ×2 (08:42→21:07)
[2017-03-22] MEDS: METHOCARBAMOL PO PRN ×2 (12:07→21:08)
[2017-03-22] MEDS: traMADol HCl 50 MG TAB PO PRN ×2 (13:18→21:20)
[2017-03-22] MEDS: fentaNYL 50 mcg/hour Patch TD SCH (16:49)
[2017-03-22] MEDS: Diazepam 5 MG TAB PO PRN (17:01)
[2017-03-23] MEDS: Ascorbic Acid 500 mg Chewable Tablet PO SCH ×2 (09:22→16:59)
[2017-03-23] MEDS: Lisinopril 10 MG TAB PO SCH (09:22)
[2017-03-23] MEDS: Ferrous Sulfate 325 MG TAB PO SCH ×2 (09:23→16:59)
[2017-03-23] MEDS: Docusate 100 MG CAP PO SCH ×2 (09:23→20:23)
[2017-03-23] MEDS: Proctozone-HC 2.5% Cream 30 GM TUBE PR SCH ×2 (09:26→20:23)
[2017-03-23] MEDS: traMADol HCl 50 MG TAB PO PRN (11:18)
[2017-03-24] MEDS: Docusate 100 MG CAP PO SCH ×2 (08:55→20:55)
[2017-03-24] MEDS: Ferrous Sulfate 325 MG TAB PO SCH ×2 (08:55→17:16)
[2017-03-24] MEDS: Proctozone-HC 2.5% Cream 30 GM TUBE PR SCH ×2 (08:56→20:54)
[2017-03-24] MEDS: Ascorbic Acid 500 mg Chewable Tablet PO SCH ×2 (08:56→17:15)
[2017-03-24] MEDS: Lisinopril 10 MG TAB PO SCH (08:56)
[2017-03-24] MEDS: traMADol HCl 50 MG TAB PO PRN ×3 (10:44→20:53)
[2017-03-24] MEDS: METHOCARBAMOL PO PRN (15:42)
[2017-03-25] MEDS: METHOCARBAMOL PO PRN ×3 (00:13→22:20)
[2017-03-25] MEDS: Lisinopril 10 MG TAB PO SCH (08:21)
[2017-03-25] MEDS: Ferrous Sulfate 325 MG TAB PO SCH ×2 (08:22→16:07)
[2017-03-25] MEDS: Ascorbic Acid 500 mg Chewable Tablet PO SCH ×2 (08:22→16:07)
[2017-03-25] MEDS: Proctozone-HC 2.5% Cream 30 GM TUBE PR SCH ×2 (08:23→20:17)
[2017-03-25] MEDS: Docusate 100 MG CAP PO SCH ×2 (08:24→20:17)
[2017-03-25] MEDS: fentaNYL 50 mcg/hour Patch TD SCH (14:24)
[2017-03-25] MEDS: traMADol HCl 50 MG TAB PO PRN ×2 (16:07→20:16)
[2017-03-26] MEDS: traMADol HCl 50 MG TAB PO PRN ×2 (00:55→20:54)
[2017-03-26] MEDS: Ferrous Sulfate 325 MG TAB PO SCH ×2 (08:34→16:58)
[2017-03-26] MEDS: Lisinopril 10 MG TAB PO SCH (08:34)
[2017-03-26] MEDS: Docusate 100 MG CAP PO SCH ×3 (08:34→20:50)
[2017-03-26] MEDS: Ascorbic Acid 500 mg Chewable Tablet PO SCH ×2 (08:35→16:58)
[2017-03-26] MEDS: Proctozone-HC 2.5% Cream 30 GM TUBE PR SCH ×2 (08:35→20:46)
[2017-03-26] MEDS: METHOCARBAMOL PO PRN (18:12)
[2017-03-27] MEDS: traMADol HCl 50 MG TAB PO PRN ×4 (02:29→22:54)
[2017-03-27] MEDS: Ascorbic Acid 500 mg Chewable Tablet PO SCH ×2 (08:36→16:22)
[2017-03-27] MEDS: Ferrous Sulfate 325 MG TAB PO SCH ×2 (08:37→16:22)
[2017-03-27] MEDS: Docusate 100 MG CAP PO SCH ×2 (08:38→20:18)
[2017-03-27] MEDS: Proctozone-HC 2.5% Cream 30 GM TUBE PR SCH ×2 (08:39→20:19)
[2017-03-27] MEDS: Lisinopril 10 MG TAB PO SCH (08:39)
[2017-03-27] MEDS: Ondansetron ODT 4 MG TAB PO PRN (16:23)
[2017-03-28] MEDS: Lisinopril 10 MG TAB PO SCH (08:52)
[2017-03-28] MEDS: Ferrous Sulfate 325 MG TAB PO SCH ×2 (08:52→17:03)
[2017-03-28] MEDS: Docusate 100 MG CAP PO SCH ×2 (08:52→20:15)
[2017-03-28] MEDS: Proctozone-HC 2.5% Cream 30 GM TUBE PR SCH ×2 (08:53→20:15)
[2017-03-28] MEDS: Ascorbic Acid 500 mg Chewable Tablet PO SCH ×2 (08:53→17:03)
[2017-03-28] MEDS: METHOCARBAMOL PO PRN ×2 (13:02→22:52)
[2017-03-28] MEDS: fentaNYL 50 mcg/hour Patch TD SCH (14:57)
[2017-03-28] MEDS: traMADol HCl 50 MG TAB PO PRN ×2 (15:02→20:13)
[2017-03-29] MEDS: traMADol HCl 50 MG TAB PO PRN ×2 (01:45→21:04)
[2017-03-29 04:57] LABS: #Eosinphils 0.1 thou/uL (0.0-0.7); #Lymphocytes 2.2 thou/uL (1.20-3.40); #Monocytes 0.6 thou/uL (0.11-0.59); #Neutrophils 3.1 thou/uL (1.40-6.50); %Basophils 0.7 % (0.0-1.0); %Eosinophils 2.1 % (0.0-10.0); %Lymphocytes 36.2 % (21.0-51.0); %Monocytes 9.6 % (0.0-10.0); %Neutrophils 51.4 % (42.0-75.0); Hemoglobin 7.4 g/dL (12.0-16.0); Mean Corpuscular HGB CONC 33.3 g/dL (32.0-36.0); Mean Corpuscular Hemoglobin 31.2 pg (27.0-31.0); Mean Corpuscular Volume 93.7 fl (81.0-99.0); Mean Platelet Volume 6.4 fL (7.4-10.4); Platelet Count 215 thou/uL (130-400); RBC Distribution Width 13.3 % (11.5-14.5); Red Blood Cell (RBC) Count 2.38 mill/uL (4.20-5.40); White Blood Cell (WBC) Count 6.1 thou/uL (4.8-10.8)
[2017-03-29 05:27] LABS: Carbon Dioxide 22 mmol/L (23-31); Chloride 102 mmol/L (98-107); Potassium 5.7 mmol/L (3.5-5.1); Sodium 136 mmol/L (136-145)
[2017-03-29 05:28] LABS: Anion Gap 18 mmol/L (10-20)
[2017-03-29 05:29] LABS: ALT (SGPT) 10 U/L (8-55); AST (SGOT) 15 U/L (5-34); Albumin 3.3 g/dL (3.4-4.8); Alkaline Phosphatase 86 U/L (40-150); BUN (Urea Nitrogen) 80 mg/dL (9.8-20.1); Bilirubin, Total 0.3 mg/dL (0.2-1.2); Calc. Creatinine Clearance 12 mL/min (70-130); Calcium 8.7 mg/dL (7.8-10.44); Estimated GFR-MDRD 18; Globulin 2.4 g/dL (2.4-3.5); Glucose 96 mg/dL (83-110); Protein, Total 5.7 g/dL (5.8-8.1)
[2017-03-29] MEDS: Lisinopril 10 MG TAB PO SCH (08:40)
[2017-03-29] MEDS: Ferrous Sulfate 325 MG TAB PO SCH ×2 (08:40→17:32)
[2017-03-29] MEDS: Ascorbic Acid 500 mg Chewable Tablet PO SCH ×2 (08:40→17:32)
[2017-03-29] MEDS: Docusate 100 MG CAP PO SCH ×2 (08:41→14:45)
[2017-03-29] MEDS: Proctozone-HC 2.5% Cream 30 GM TUBE PR SCH ×2 (08:42→20:38)
[2017-03-29] MEDS: METHOCARBAMOL PO PRN ×3 (08:43→23:20)
[2017-03-29] MEDS: Ondansetron ODT 4 MG TAB PO PRN (10:21)
[2017-03-29] MEDS ORDERED: Docusate 100 MG CAP PO PRN (13:37)
[2017-03-30] MEDS: Ferrous Sulfate 325 MG TAB PO SCH ×2 (08:37→16:43)
[2017-03-30] MEDS: Ascorbic Acid 500 mg Chewable Tablet PO SCH ×2 (08:37→16:43)
[2017-03-30] MEDS: Lisinopril 10 MG TAB PO SCH (08:40)
[2017-03-30] MEDS: Proctozone-HC 2.5% Cream 30 GM TUBE PR SCH ×2 (08:41→20:36)
[2017-03-30] MEDS: METHOCARBAMOL PO PRN (11:31)
[2017-03-30] MEDS: traMADol HCl 50 MG TAB PO PRN ×2 (14:29→22:49)
[2017-03-30 18:20] LABS: Anion Gap 19 mmol/L (10-20); BUN (Urea Nitrogen) 76 mg/dL (9.8-20.1); Calc. Creatinine Clearance 12 mL/min (70-130); Calcium 8.5 mg/dL (7.8-10.44); Carbon Dioxide 20 mmol/L (23-31); Chloride 101 mmol/L (98-107); Estimated GFR-MDRD 18; Glucose 123 mg/dL (83-110); Potassium 5.4 mmol/L (3.5-5.1); Sodium 135 mmol/L (136-145)
[2017-03-31] MEDS: Ondansetron ODT 4 MG TAB PO PRN ×2 (06:01→13:12)
[2017-03-31] MEDS: Ferrous Sulfate 325 MG TAB PO SCH ×2 (08:09→17:18)
[2017-03-31] MEDS: Ascorbic Acid 500 mg Chewable Tablet PO SCH ×2 (08:09→17:19)
[2017-03-31] MEDS: Lisinopril 10 MG TAB PO SCH (08:09)
[2017-03-31] MEDS: Proctozone-HC 2.5% Cream 30 GM TUBE PR SCH ×2 (08:14→20:58)
[2017-03-31] MEDS: traMADol HCl 50 MG TAB PO PRN ×2 (13:11→21:02)
[2017-03-31] MEDS: fentaNYL 50 mcg/hour Patch TD SCH (14:28)
[2017-03-31] MEDS: Mirtazapine 15 MG TAB PO SCH (20:58)
[2017-04-01 05:24] LABS: Carbon Dioxide 20 mmol/L (23-31); Chloride 103 mmol/L (98-107); Potassium 5.2 mmol/L (3.5-5.1); Sodium 136 mmol/L (136-145)
[2017-04-01 05:26] LABS: Anion Gap 18 mmol/L (10-20); BUN (Urea Nitrogen) 77 mg/dL (9.8-20.1); Calc. Creatinine Clearance 12 mL/min (70-130); Calcium 8.5 mg/dL (7.8-10.44); Estimated GFR-MDRD 20; Glucose 91 mg/dL (83-110)
[2017-04-01] MEDS: Ascorbic Acid 500 mg Chewable Tablet PO SCH ×2 (08:56→17:21)
[2017-04-01] MEDS: Lisinopril 10 MG TAB PO SCH (08:56)
[2017-04-01] MEDS: Ferrous Sulfate 325 MG TAB PO SCH ×2 (08:57→17:21)
[2017-04-01] MEDS: METHOCARBAMOL PO PRN (11:15)
[2017-04-01] MEDS: Proctozone-HC 2.5% Cream 30 GM TUBE PR SCH ×3 (14:19→20:59)
[2017-04-01] MEDS: Mirtazapine 15 MG TAB PO SCH (20:58)
[2017-04-01] MEDS: traMADol HCl 50 MG TAB PO PRN (20:58)
[2017-04-02] MEDS: Ferrous Sulfate 325 MG TAB PO SCH ×2 (08:08→16:33)
[2017-04-02] MEDS: Ascorbic Acid 500 mg Chewable Tablet PO SCH ×2 (08:08→16:33)
[2017-04-02] MEDS: Lisinopril 10 MG TAB PO SCH (08:09)
[2017-04-02] MEDS: Proctozone-HC 2.5% Cream 30 GM TUBE PR SCH ×2 (08:09→20:56)
[2017-04-02] MEDS: Mirtazapine 15 MG TAB PO SCH (20:53)
[2017-04-02] MEDS: traMADol HCl 50 MG TAB PO PRN (22:17)
[2017-04-03] MEDS: traMADol HCl 50 MG TAB PO PRN ×2 (03:57→22:25)
[2017-04-03] MEDS: Lisinopril 10 MG TAB PO SCH (08:42)
[2017-04-03] MEDS: Ferrous Sulfate 325 MG TAB PO SCH ×2 (08:42→16:15)
[2017-04-03] MEDS: Proctozone-HC 2.5% Cream 30 GM TUBE PR SCH ×2 (08:43→20:24)
[2017-04-03] MEDS: Ascorbic Acid 500 mg Chewable Tablet PO SCH ×2 (08:43→16:15)
[2017-04-03] MEDS: fentaNYL 50 mcg/hour Patch TD SCH (15:11)
[2017-04-03] MEDS: Mirtazapine 15 MG TAB PO SCH (20:24)
[2017-04-04] MEDS: Ferrous Sulfate 325 MG TAB PO SCH ×2 (08:38→16:45)
[2017-04-04] MEDS: Ascorbic Acid 500 mg Chewable Tablet PO SCH ×2 (08:38→16:45)
[2017-04-04] MEDS: Lisinopril 10 MG TAB PO SCH (08:38)
[2017-04-04] MEDS: Proctozone-HC 2.5% Cream 30 GM TUBE PR SCH ×2 (08:39→21:08)
[2017-04-04] MEDS: METHOCARBAMOL PO PRN (15:10)
[2017-04-04] MEDS: Mirtazapine 15 MG TAB PO SCH (20:38)
[2017-04-04] MEDS: traMADol HCl 50 MG TAB PO PRN (20:38)
[2017-04-04] MEDS: Lantiseptic Ointment 130 GM JAR TOP PRN (20:43)
[2017-04-05] MEDS: traMADol HCl 50 MG TAB PO PRN ×2 (01:16→20:49)
[2017-04-05 05:08] LABS: #Eosinphils 0.3 thou/uL (0.0-0.7); #Lymphocytes 2.1 thou/uL (1.20-3.40); #Monocytes 0.6 thou/uL (0.11-0.59); #Neutrophils 3.5 thou/uL (1.40-6.50); %Basophils 0.6 % (0.0-1.0); %Eosinophils 4.1 % (0.0-10.0); %Lymphocytes 32.2 % (21.0-51.0); %Monocytes 8.6 % (0.0-10.0); %Neutrophils 54.5 % (42.0-75.0); Hemoglobin 7.6 g/dL (12.0-16.0); Mean Corpuscular HGB CONC 33.9 g/dL (32.0-36.0); Mean Corpuscular Hemoglobin 31.7 pg (27.0-31.0); Mean Corpuscular Volume 93.6 fl (81.0-99.0); Mean Platelet Volume 6.8 fL (7.4-10.4); Platelet Count 194 thou/uL (130-400); RBC Distribution Width 12.8 % (11.5-14.5); Red Blood Cell (RBC) Count 2.39 mill/uL (4.20-5.40); White Blood Cell (WBC) Count 6.5 thou/uL (4.8-10.8)
[2017-04-05 05:24] LABS: ALT (SGPT) 10 U/L (8-55); AST (SGOT) 15 U/L (5-34); Albumin 3.2 g/dL (3.4-4.8); Alkaline Phosphatase 88 U/L (40-150); Anion Gap 15 mmol/L (10-20); BUN (Urea Nitrogen) 84 mg/dL (9.8-20.1); Bilirubin, Total Less than 0.3 mg/dL (0.2-1.2); Calc. Creatinine Clearance 12 mL/min (70-130); Calcium 8.3 mg/dL (7.8-10.44); Carbon Dioxide 21 mmol/L (23-31); Chloride 105 mmol/L (98-107); Estimated GFR-MDRD 18; Globulin 2.4 g/dL (2.4-3.5); Glucose 98 mg/dL (83-110); Potassium 5.1 mmol/L (3.5-5.1); Protein, Total 5.6 g/dL (6.0-8.3); Sodium 136 mmol/L (136-145)
[2017-04-05] MEDS: Ascorbic Acid 500 mg Chewable Tablet PO SCH ×2 (08:31→16:15)
[2017-04-05] MEDS: Lisinopril 10 MG TAB PO SCH (08:31)
[2017-04-05] MEDS: Ferrous Sulfate 325 MG TAB PO SCH ×2 (08:33→16:15)
[2017-04-05] MEDS: Proctozone-HC 2.5% Cream 30 GM TUBE PR SCH ×2 (08:33→20:45)
[2017-04-05] MEDS: Mirtazapine 15 MG TAB PO SCH (20:45)
[2017-04-06] MEDS: Ferrous Sulfate 325 MG TAB PO SCH ×2 (08:46→17:18)
[2017-04-06] MEDS: Ascorbic Acid 500 mg Chewable Tablet PO SCH ×2 (08:46→17:18)
[2017-04-06] MEDS: Lisinopril 10 MG TAB PO SCH (08:46)
[2017-04-06] MEDS: Proctozone-HC 2.5% Cream 30 GM TUBE PR SCH ×2 (08:48→21:19)
[2017-04-06] MEDS: fentaNYL 50 mcg/hour Patch TD SCH (15:29)
[2017-04-06] MEDS: Mirtazapine 15 MG TAB PO SCH (21:19)
[2017-04-06] MEDS: traMADol HCl 50 MG TAB PO PRN (21:24)
[2017-04-07] MEDS: traMADol HCl 50 MG TAB PO PRN ×2 (02:07→22:00)
[2017-04-07] MEDS: Ferrous Sulfate 325 MG TAB PO SCH ×2 (09:07→17:10)
[2017-04-07] MEDS: Lisinopril 10 MG TAB PO SCH (09:08)
[2017-04-07] MEDS: Ascorbic Acid 500 mg Chewable Tablet PO SCH ×2 (09:09→17:10)
[2017-04-07] MEDS: Proctozone-HC 2.5% Cream 30 GM TUBE PR SCH ×2 (11:59→21:15)
[2017-04-07] MEDS: METHOCARBAMOL PO PRN (12:45)
[2017-04-07] MEDS: Mirtazapine 15 MG TAB PO SCH (21:15)
[2017-04-08] MEDS: traMADol HCl 50 MG TAB PO PRN ×2 (02:34→13:17)
[2017-04-08] MEDS: Lisinopril 10 MG TAB PO SCH (09:03)
[2017-04-08] MEDS: Ascorbic Acid 500 mg Chewable Tablet PO SCH ×2 (09:04→17:54)
[2017-04-08] MEDS: Ferrous Sulfate 325 MG TAB PO SCH ×2 (09:04→17:54)
[2017-04-08] MEDS: Proctozone-HC 2.5% Cream 30 GM TUBE PR SCH ×2 (13:48→21:11)
[2017-04-08] MEDS: Mirtazapine 15 MG TAB PO SCH (21:09)
[2017-04-08] MEDS ORDERED: traMADol HCl 50 MG TAB PO PRN (21:29)
[2017-04-08] MEDS: METHOCARBAMOL PO PRN (21:51)
[2017-04-09] MEDS: Lisinopril 10 MG TAB PO SCH (09:10)
[2017-04-09] MEDS: Ferrous Sulfate 325 MG TAB PO SCH ×2 (09:11→17:16)
[2017-04-09] MEDS: Ascorbic Acid 500 mg Chewable Tablet PO SCH ×2 (09:11→17:15)
[2017-04-09] MEDS: Proctozone-HC 2.5% Cream 30 GM TUBE PR SCH ×2 (09:12→21:00)
[2017-04-09] MEDS: traMADol HCl 50 MG TAB PO PRN ×2 (12:07→21:00)
[2017-04-09] MEDS: METHOCARBAMOL PO PRN (12:09)
[2017-04-09] MEDS: fentaNYL 50 mcg/hour Patch TD SCH (15:29)
[2017-04-09] MEDS: Mirtazapine 15 MG TAB PO SCH (21:00)
[2017-04-10] MEDS: METHOCARBAMOL PO PRN ×2 (00:08→16:10)
[2017-04-10] MEDS: Lisinopril 10 MG TAB PO SCH (08:40)
[2017-04-10] MEDS: Ferrous Sulfate 325 MG TAB PO SCH ×2 (08:41→17:20)
[2017-04-10] MEDS: Ascorbic Acid 500 mg Chewable Tablet PO SCH ×2 (08:42→17:20)
[2017-04-10] MEDS: Proctozone-HC 2.5% Cream 30 GM TUBE PR SCH ×2 (08:42→20:58)
[2017-04-10] MEDS: Mirtazapine 15 MG TAB PO SCH (20:59)
[2017-04-10] MEDS: traMADol HCl 50 MG TAB PO PRN (22:08)
[2017-04-11] MEDS: Ferrous Sulfate 325 MG TAB PO SCH ×2 (08:45→16:48)
[2017-04-11] MEDS: Ascorbic Acid 500 mg Chewable Tablet PO SCH ×2 (08:45→16:48)
[2017-04-11] MEDS: Lisinopril 10 MG TAB PO SCH (08:45)
[2017-04-11] MEDS: METHOCARBAMOL PO PRN (09:49)
[2017-04-11] MEDS: traMADol HCl 50 MG TAB PO PRN ×2 (13:20→21:19)
[2017-04-11] MEDS: Proctozone-HC 2.5% Cream 30 GM TUBE PR SCH ×2 (13:21→21:16)
[2017-04-11] MEDS: fentaNYL 50 mcg/hour Patch TD SCH (16:48)
[2017-04-11] MEDS: Mirtazapine 15 MG TAB PO SCH (21:15)
[2017-04-12] MEDS: Lisinopril 10 MG TAB PO SCH (08:19)
[2017-04-12] MEDS: Ascorbic Acid 500 mg Chewable Tablet PO SCH ×2 (08:19→16:57)
[2017-04-12] MEDS: Ferrous Sulfate 325 MG TAB PO SCH ×2 (08:19→16:57)
[2017-04-12] MEDS: Proctozone-HC 2.5% Cream 30 GM TUBE PR SCH ×2 (08:20→20:12)
[2017-04-12] MEDS: METHOCARBAMOL PO PRN (09:44)
[2017-04-12] MEDS: traMADol HCl 50 MG TAB PO PRN ×2 (11:51→21:50)
[2017-04-12] MEDS: Mirtazapine 15 MG TAB PO SCH (20:11)
[2017-04-13] MEDS: Lisinopril 10 MG TAB PO SCH (08:37)
[2017-04-13] MEDS: Ascorbic Acid 500 mg Chewable Tablet PO SCH ×2 (08:37→16:12)
[2017-04-13] MEDS: Proctozone-HC 2.5% Cream 30 GM TUBE PR SCH ×2 (08:38→21:01)
[2017-04-13] MEDS: Ferrous Sulfate 325 MG TAB PO SCH ×2 (08:38→16:12)
[2017-04-13] MEDS: METHOCARBAMOL PO PRN ×2 (08:41→13:54)
[2017-04-13] MEDS: traMADol HCl 50 MG TAB PO PRN ×2 (10:40→21:00)
[2017-04-13] MEDS: Ondansetron ODT 4 MG TAB PO PRN (10:43)
[2017-04-13] MEDS: Mirtazapine 15 MG TAB PO SCH (20:58)
[2017-04-14] MEDS: Ferrous Sulfate 325 MG TAB PO SCH ×2 (08:33→17:04)
[2017-04-14] MEDS: Ascorbic Acid 500 mg Chewable Tablet PO SCH ×2 (08:33→17:03)
[2017-04-14] MEDS: Lisinopril 10 MG TAB PO SCH (08:36)
[2017-04-14] MEDS: Proctozone-HC 2.5% Cream 30 GM TUBE PR SCH ×2 (08:37→20:20)
[2017-04-14] MEDS: fentaNYL 50 mcg/hour Patch TD SCH (15:34)
[2017-04-14] MEDS: traMADol HCl 50 MG TAB PO PRN (20:17)
[2017-04-14] MEDS: Mirtazapine 15 MG TAB PO SCH (20:17)
[2017-04-15] MEDS: Ascorbic Acid 500 mg Chewable Tablet PO SCH ×2 (08:21→17:20)
[2017-04-15] MEDS: Ferrous Sulfate 325 MG TAB PO SCH ×2 (08:21→17:20)
[2017-04-15] MEDS: Proctozone-HC 2.5% Cream 30 GM TUBE PR SCH ×2 (08:22→20:32)
[2017-04-15] MEDS: Lisinopril 10 MG TAB PO SCH (08:22)
[2017-04-15] MEDS: Mirtazapine 15 MG TAB PO SCH (20:31)
[2017-04-15] MEDS: METHOCARBAMOL PO PRN (20:32)
[2017-04-15] MEDS: traMADol HCl 50 MG TAB PO PRN (21:48)
[2017-04-16] MEDS: Ascorbic Acid 500 mg Chewable Tablet PO SCH ×2 (08:45→16:52)
[2017-04-16] MEDS: Ferrous Sulfate 325 MG TAB PO SCH ×2 (08:45→16:52)
[2017-04-16] MEDS: Proctozone-HC 2.5% Cream 30 GM TUBE PR SCH ×2 (08:46→20:14)
[2017-04-16] MEDS: Lisinopril 10 MG TAB PO SCH (08:46)
[2017-04-16] MEDS: METHOCARBAMOL PO PRN (13:01)
[2017-04-16] MEDS: Mirtazapine 15 MG TAB PO SCH (20:14)
[2017-04-16] MEDS: traMADol HCl 50 MG TAB PO PRN (20:15)
[2017-04-17] MEDS: Lisinopril 10 MG TAB PO SCH (08:46)
[2017-04-17] MEDS: Ferrous Sulfate 325 MG TAB PO SCH ×2 (08:48→17:04)
[2017-04-17] MEDS: Ascorbic Acid 500 mg Chewable Tablet PO SCH ×2 (08:48→17:04)
[2017-04-17] MEDS: Proctozone-HC 2.5% Cream 30 GM TUBE PR SCH ×2 (08:48→20:57)
[2017-04-17] MEDS: METHOCARBAMOL PO PRN (10:51)
[2017-04-17] MEDS: fentaNYL 50 mcg/hour Patch TD SCH (14:31)
[2017-04-17] MEDS: Mirtazapine 15 MG TAB PO SCH (20:55)
[2017-04-17] MEDS: traMADol HCl 50 MG TAB PO PRN (20:56)
[2017-04-18] MEDS: Proctozone-HC 2.5% Cream 30 GM TUBE PR SCH ×2 (09:04→20:36)
[2017-04-18] MEDS: Lisinopril 10 MG TAB PO SCH (09:04)
[2017-04-18] MEDS: Ferrous Sulfate 325 MG TAB PO SCH ×2 (09:05→18:09)
[2017-04-18] MEDS: Ascorbic Acid 500 mg Chewable Tablet PO SCH ×2 (09:05→18:09)
[2017-04-18] MEDS: METHOCARBAMOL PO PRN (10:34)
[2017-04-18] MEDS: Lantiseptic Ointment 130 GM JAR TOP PRN (13:33)
[2017-04-18] MEDS: Mirtazapine 15 MG TAB PO SCH (20:33)
[2017-04-18] MEDS: traMADol HCl 50 MG TAB PO PRN (20:34)
[2017-04-19] MEDS: Ascorbic Acid 500 mg Chewable Tablet PO SCH ×2 (08:50→16:27)
[2017-04-19] MEDS: Ferrous Sulfate 325 MG TAB PO SCH ×2 (08:50→16:28)
[2017-04-19] MEDS: Lisinopril 10 MG TAB PO SCH (08:51)
[2017-04-19] MEDS: Proctozone-HC 2.5% Cream 30 GM TUBE PR SCH ×2 (08:52→20:51)
[2017-04-19] MEDS: METHOCARBAMOL PO PRN ×2 (12:42→19:24)
[2017-04-19] MEDS: Mirtazapine 15 MG TAB PO SCH (20:49)
[2017-04-19] MEDS: traMADol HCl 50 MG TAB PO PRN (20:49)
[2017-04-20] MEDS: Ferrous Sulfate 325 MG TAB PO SCH ×2 (09:41→18:01)
[2017-04-20] MEDS: Ascorbic Acid 500 mg Chewable Tablet PO SCH ×2 (09:42→18:01)
[2017-04-20] MEDS: Lisinopril 10 MG TAB PO SCH (09:42)
[2017-04-20] MEDS: Proctozone-HC 2.5% Cream 30 GM TUBE PR SCH ×2 (09:43→20:45)
[2017-04-20] MEDS: METHOCARBAMOL PO PRN (10:07)
[2017-04-20] MEDS: traMADol HCl 50 MG TAB PO PRN ×2 (14:09→22:03)
[2017-04-20] MEDS: fentaNYL 50 mcg/hour Patch TD SCH (16:06)
[2017-04-20] MEDS: Mirtazapine 15 MG TAB PO SCH (20:45)
[2017-04-21] MEDS: Ascorbic Acid 500 mg Chewable Tablet PO SCH ×2 (09:05→17:08)
[2017-04-21] MEDS: Lisinopril 10 MG TAB PO SCH (09:05)
[2017-04-21] MEDS: Ferrous Sulfate 325 MG TAB PO SCH ×2 (09:06→17:08)
[2017-04-21] MEDS: Proctozone-HC 2.5% Cream 30 GM TUBE PR SCH ×2 (09:06→21:21)
[2017-04-21] MEDS: METHOCARBAMOL PO PRN (10:43)
[2017-04-21] MEDS: traMADol HCl 50 MG TAB PO PRN ×2 (13:11→21:24)
[2017-04-21] MEDS: Mirtazapine 15 MG TAB PO SCH (21:21)
[2017-04-22] MEDS: Ascorbic Acid 500 mg Chewable Tablet PO SCH ×2 (08:53→16:55)
[2017-04-22] MEDS: Ferrous Sulfate 325 MG TAB PO SCH ×2 (08:53→16:55)
[2017-04-22] MEDS: Lisinopril 10 MG TAB PO SCH (08:53)
[2017-04-22] MEDS: Proctozone-HC 2.5% Cream 30 GM TUBE PR SCH ×2 (08:54→20:30)
[2017-04-22] MEDS: traMADol HCl 50 MG TAB PO PRN ×2 (10:56→20:29)
[2017-04-22] MEDS: METHOCARBAMOL PO PRN (12:44)
[2017-04-22] MEDS: Diazepam 5 MG TAB PO PRN (12:49)
[2017-04-22] MEDS: Mirtazapine 15 MG TAB PO SCH (20:28)
[2017-04-23] MEDS: Ferrous Sulfate 325 MG TAB PO SCH ×2 (08:54→16:55)
[2017-04-23] MEDS: Ascorbic Acid 500 mg Chewable Tablet PO SCH ×2 (08:55→16:55)
[2017-04-23] MEDS: Lisinopril 10 MG TAB PO SCH (08:55)
[2017-04-23] MEDS: Proctozone-HC 2.5% Cream 30 GM TUBE PR SCH ×2 (09:05→20:41)
[2017-04-23] MEDS: fentaNYL 50 mcg/hour Patch TD SCH (15:17)
[2017-04-23] MEDS: METHOCARBAMOL PO PRN (18:21)
[2017-04-23] MEDS: Mirtazapine 15 MG TAB PO SCH (20:40)
[2017-04-23] MEDS: traMADol HCl 50 MG TAB PO PRN (20:40)
[2017-04-24] MEDS: Ascorbic Acid 500 mg Chewable Tablet PO SCH ×2 (08:59→16:58)
[2017-04-24] MEDS: Lisinopril 10 MG TAB PO SCH (09:00)
[2017-04-24] MEDS: Ferrous Sulfate 325 MG TAB PO SCH ×2 (09:00→16:58)
[2017-04-24] MEDS: Proctozone-HC 2.5% Cream 30 GM TUBE PR SCH ×2 (09:59→20:37)
[2017-04-24] MEDS: METHOCARBAMOL PO PRN ×3 (10:09→20:27)
[2017-04-24] MEDS: Mirtazapine 15 MG TAB PO SCH (20:26)
[2017-04-24] MEDS: traMADol HCl 50 MG TAB PO PRN (23:35)
[2017-04-25] MEDS: Lisinopril 10 MG TAB PO SCH (08:59)
[2017-04-25] MEDS: Proctozone-HC 2.5% Cream 30 GM TUBE PR SCH ×2 (08:59→20:30)
[2017-04-25] MEDS: Ascorbic Acid 500 mg Chewable Tablet PO SCH ×2 (08:59→17:06)
[2017-04-25] MEDS: Ferrous Sulfate 325 MG TAB PO SCH ×2 (08:59→17:06)
[2017-04-25] MEDS: METHOCARBAMOL PO PRN (11:49)
[2017-04-25] MEDS: traMADol HCl 50 MG TAB PO PRN (20:28)
[2017-04-25] MEDS: Mirtazapine 15 MG TAB PO SCH (20:29)
[2017-04-26] MEDS: Ferrous Sulfate 325 MG TAB PO SCH ×2 (08:21→18:32)
[2017-04-26] MEDS: Ascorbic Acid 500 mg Chewable Tablet PO SCH ×2 (08:21→18:32)
[2017-04-26] MEDS: Lisinopril 10 MG TAB PO SCH (08:21)
[2017-04-26] MEDS: Proctozone-HC 2.5% Cream 30 GM TUBE PR SCH ×2 (08:22→20:44)
[2017-04-26] MEDS: fentaNYL 50 mcg/hour Patch TD SCH (15:29)
[2017-04-26] MEDS: traMADol HCl 50 MG TAB PO PRN ×2 (15:44→20:44)
[2017-04-26] MEDS ORDERED: Furosemide 20 MG TAB PO SCH (16:00)
[2017-04-26] MEDS: Mirtazapine 15 MG TAB PO SCH (20:43)
[2017-04-27] MEDS: Furosemide 20 MG TAB PO SCH (09:18)
[2017-04-27] MEDS: Lisinopril 10 MG TAB PO SCH (09:18)
[2017-04-27] MEDS: Ferrous Sulfate 325 MG TAB PO SCH ×2 (09:19→17:47)
[2017-04-27] MEDS: Proctozone-HC 2.5% Cream 30 GM TUBE PR SCH ×2 (09:19→21:03)
[2017-04-27] MEDS: Ascorbic Acid 500 mg Chewable Tablet PO SCH ×2 (09:19→17:47)
[2017-04-27] MEDS: traMADol HCl 50 MG TAB PO PRN ×2 (14:44→20:55)
[2017-04-27] MEDS: METHOCARBAMOL PO PRN (17:16)
[2017-04-27] MEDS: Mirtazapine 15 MG TAB PO SCH (21:03)
[2017-04-28] MEDS: Furosemide 20 MG TAB PO SCH (09:02)
[2017-04-28] MEDS: Ferrous Sulfate 325 MG TAB PO SCH ×2 (09:02→18:21)
[2017-04-28] MEDS: Lisinopril 10 MG TAB PO SCH (09:02)
[2017-04-28] MEDS: Ascorbic Acid 500 mg Chewable Tablet PO SCH ×2 (09:02→18:21)
[2017-04-28] MEDS: Proctozone-HC 2.5% Cream 30 GM TUBE PR SCH ×2 (09:03→20:21)
[2017-04-28] MEDS: METHOCARBAMOL PO PRN (13:29)
[2017-04-28] MEDS: Mirtazapine 15 MG TAB PO SCH (20:21)
[2017-04-28] MEDS: traMADol HCl 50 MG TAB PO PRN (20:21)
[2017-04-29] MEDS: Ascorbic Acid 500 mg Chewable Tablet PO SCH ×2 (08:54→17:39)
[2017-04-29] MEDS: Lisinopril 10 MG TAB PO SCH (08:54)
[2017-04-29] MEDS: Ferrous Sulfate 325 MG TAB PO SCH ×2 (08:55→17:39)
[2017-04-29] MEDS: Proctozone-HC 2.5% Cream 30 GM TUBE PR SCH ×2 (08:56→20:14)
[2017-04-29] MEDS: fentaNYL 50 mcg/hour Patch TD SCH (14:26)
[2017-04-29] MEDS: Mirtazapine 15 MG TAB PO SCH (20:14)
[2017-04-29] MEDS: traMADol HCl 50 MG TAB PO PRN (20:16)
[2017-04-30] MEDS: Ferrous Sulfate 325 MG TAB PO SCH ×2 (08:29→17:13)
[2017-04-30] MEDS: Ascorbic Acid 500 mg Chewable Tablet PO SCH ×2 (08:30→17:13)
[2017-04-30] MEDS: Lisinopril 10 MG TAB PO SCH (10:01)
[2017-04-30] MEDS: Proctozone-HC 2.5% Cream 30 GM TUBE PR SCH ×2 (10:03→20:29)
[2017-04-30] MEDS: traMADol HCl 50 MG TAB PO PRN ×2 (13:27→19:39)
[2017-04-30] MEDS: Mirtazapine 15 MG TAB PO SCH (20:29)
[2017-05-01] MEDS: Ascorbic Acid 500 mg Chewable Tablet PO SCH ×2 (08:03→17:18)
[2017-05-01] MEDS: Lisinopril 10 MG TAB PO SCH (08:03)
[2017-05-01] MEDS: Ferrous Sulfate 325 MG TAB PO SCH ×2 (08:03→17:18)
[2017-05-01] MEDS: Proctozone-HC 2.5% Cream 30 GM TUBE PR SCH ×2 (08:04→20:37)
[2017-05-01] MEDS: METHOCARBAMOL PO PRN (13:34)
[2017-05-01] MEDS: traMADol HCl 50 MG TAB PO PRN (19:30)
[2017-05-01] MEDS: Mirtazapine 15 MG TAB PO SCH (20:36)
[2017-05-02] MEDS: Lisinopril 10 MG TAB PO SCH (08:40)
[2017-05-02] MEDS: Ascorbic Acid 500 mg Chewable Tablet PO SCH ×2 (08:41→16:21)
[2017-05-02] MEDS: Ferrous Sulfate 325 MG TAB PO SCH ×2 (08:41→16:22)
[2017-05-02] MEDS: Proctozone-HC 2.5% Cream 30 GM TUBE PR SCH ×2 (08:42→20:32)
[2017-05-02] MEDS: METHOCARBAMOL PO PRN (14:10)
[2017-05-02] MEDS: fentaNYL 50 mcg/hour Patch TD SCH (16:20)
[2017-05-02] MEDS: Mirtazapine 15 MG TAB PO SCH (20:31)
[2017-05-02] MEDS: traMADol HCl 50 MG TAB PO PRN (20:31)
[2017-05-03] MEDS: Ascorbic Acid 500 mg Chewable Tablet PO SCH ×2 (08:20→17:25)
[2017-05-03] MEDS: Ferrous Sulfate 325 MG TAB PO SCH ×2 (08:20→17:25)
[2017-05-03] MEDS: Lisinopril 10 MG TAB PO SCH (08:20)
[2017-05-03] MEDS: Proctozone-HC 2.5% Cream 30 GM TUBE PR SCH ×2 (08:21→20:42)
[2017-05-03] MEDS: Ondansetron ODT 4 MG TAB PO PRN (10:09)
[2017-05-03] MEDS: METHOCARBAMOL PO PRN ×2 (14:27→19:16)
[2017-05-03] MEDS: Mirtazapine 15 MG TAB PO SCH (20:40)
[2017-05-03] MEDS: traMADol HCl 50 MG TAB PO PRN (20:41)
[2017-05-04 05:15] LABS: #Basophils 0.1 thou/uL (0.0-0.2); #Eosinphils 0.1 thou/uL (0.0-0.7); #Lymphocytes 2.2 thou/uL (1.20-3.40); #Monocytes 0.5 thou/uL (0.11-0.59); #Neutrophils 2.1 thou/uL (1.40-6.50); %Basophils 1.3 % (0.0-1.0); %Eosinophils 2.2 % (0.0-10.0); %Lymphocytes 44.1 % (21.0-51.0); %Monocytes 9.6 % (0.0-10.0); %Neutrophils 42.8 % (42.0-75.0); Hemoglobin 7.2 g/dL (12.0-16.0); Mean Corpuscular HGB CONC 33.8 g/dL (32.0-36.0); Mean Corpuscular Volume 94.6 fl (81.0-99.0); Mean Platelet Volume 6.5 fL (7.4-10.4); Platelet Count 211 thou/uL (130-400); RBC Distribution Width 13.2 % (11.5-14.5); Red Blood Cell (RBC) Count 2.27 mill/uL (4.20-5.40); White Blood Cell (WBC) Count 4.9 thou/uL (4.8-10.8)
[2017-05-04 05:32] LABS: ALT (SGPT) 12 U/L (8-55); AST (SGOT) 15 U/L (5-34); Albumin 3.4 g/dL (3.4-4.8); Alkaline Phosphatase 81 U/L (40-150); Anion Gap 16 mmol/L (10-20); BUN (Urea Nitrogen) 84 mg/dL (9.8-20.1); Bilirubin, Total Less than 0.3 mg/dL (0.2-1.2); Calc. Creatinine Clearance 13 mL/min (70-130); Calcium 8.2 mg/dL (7.8-10.44); Carbon Dioxide 20 mmol/L (23-31); Chloride 106 mmol/L (98-107); Estimated GFR-MDRD 17; Globulin 2.4 g/dL (2.4-3.5); Glucose 90 mg/dL (83-110); Potassium 6.3 mmol/L (3.5-5.1); Protein, Total 5.8 g/dL (6.0-8.3); Sodium 136 mmol/L (136-145)
[2017-05-04] MEDS: Proctozone-HC 2.5% Cream 30 GM TUBE PR SCH ×2 (08:51→20:51)
[2017-05-04] MEDS: Ferrous Sulfate 325 MG TAB PO SCH ×2 (08:51→17:48)
[2017-05-04] MEDS: Lisinopril 10 MG TAB PO SCH (08:51)
[2017-05-04] MEDS: Ascorbic Acid 500 mg Chewable Tablet PO SCH ×2 (08:51→17:48)
[2017-05-04] MEDS: METHOCARBAMOL PO PRN ×2 (09:49→14:04)
[2017-05-04] MEDS ORDERED: Calcium Gluconate 4.6 MEQ in Sodium Chloride 0.9% 100 ML IVPB ONE (10:13)
[2017-05-04] MEDS ORDERED: Calcium Gluconate 4.6 MEQ in Sodium Chloride 0.9% 100 ML IVPB SCH (11:15)
[2017-05-04] MEDS: Sodium Chloride 0.9% 1,000 ML IV SCH (19:27)
[2017-05-04] MEDS: Mirtazapine 15 MG TAB PO SCH (20:50)
[2017-05-04] MEDS: traMADol HCl 50 MG TAB PO PRN (20:50)
[2017-05-05] MEDS: Sodium Chloride 0.9% 1,000 ML IV SCH ×2 (04:46→15:17)
[2017-05-05 05:06] LABS: #Eosinphils 0.2 thou/uL (0.0-0.7); #Monocytes 0.4 thou/uL (0.11-0.59); #Neutrophils 1.9 thou/uL (1.40-6.50); %Eosinophils 3.7 % (0.0-10.0); %Lymphocytes 43.4 % (21.0-51.0); %Monocytes 9.3 % (0.0-10.0); %Neutrophils 42.6 % (42.0-75.0); Hemoglobin 8.4 g/dL (12.0-16.0); Mean Corpuscular HGB CONC 33.4 g/dL (32.0-36.0); Mean Corpuscular Hemoglobin 31.1 pg (27.0-31.0); Mean Corpuscular Volume 93.2 fl (81.0-99.0); Mean Platelet Volume 6.8 fL (7.4-10.4); Platelet Count 199 thou/uL (130-400); RBC Distribution Width 14.6 % (11.5-14.5); White Blood Cell (WBC) Count 4.5 thou/uL (4.8-10.8)
[2017-05-05 05:23] LABS: Anion Gap 16 mmol/L (10-20); BUN (Urea Nitrogen) 71 mg/dL (9.8-20.1); Calc. Creatinine Clearance 13 mL/min (70-130); Calcium 8.1 mg/dL (7.8-10.44); Carbon Dioxide 19 mmol/L (23-31); Chloride 109 mmol/L (98-107); Estimated GFR-MDRD 18; Glucose 92 mg/dL (83-110); Potassium 5.3 mmol/L (3.5-5.1); Sodium 139 mmol/L (136-145)
[2017-05-05] MEDS: Ascorbic Acid 500 mg Chewable Tablet PO SCH ×2 (08:44→16:39)
[2017-05-05] MEDS: Ferrous Sulfate 325 MG TAB PO SCH ×2 (08:45→16:39)
[2017-05-05] MEDS: Lisinopril 10 MG TAB PO SCH (08:46)
[2017-05-05] MEDS: Proctozone-HC 2.5% Cream 30 GM TUBE PR SCH ×2 (08:47→20:44)
[2017-05-05] MEDS: METHOCARBAMOL PO PRN ×2 (10:42→19:19)
[2017-05-05] MEDS: traMADol HCl 50 MG TAB PO PRN (12:10)
[2017-05-05] MEDS: fentaNYL 50 mcg/hour Patch TD SCH (15:16)
[2017-05-05] MEDS ORDERED: clonazePAM 0.5 MG TAB PO PRN (16:21)
[2017-05-05] MEDS: cloNIDine HCl 0.1 MG TAB PO SCH (20:44)
[2017-05-05] MEDS: Mirtazapine 15 MG TAB PO SCH (20:44)
[2017-05-06] MEDS: Sodium Chloride 0.9% 1,000 ML IV SCH (01:15)
[2017-05-06 05:35] LABS: #Eosinphils 0.2 thou/uL (0.0-0.7); #Lymphocytes 1.7 thou/uL (1.20-3.40); #Monocytes 0.5 thou/uL (0.11-0.59); #Neutrophils 2.6 thou/uL (1.40-6.50); %Basophils 0.9 % (0.0-1.0); %Eosinophils 3.8 % (0.0-10.0); %Lymphocytes 34.1 % (21.0-51.0); %Monocytes 9.3 % (0.0-10.0); Mean Corpuscular HGB CONC 34.2 g/dL (32.0-36.0); Mean Corpuscular Hemoglobin 31.6 pg (27.0-31.0); Mean Corpuscular Volume 92.6 fl (81.0-99.0); Mean Platelet Volume 6.5 fL (7.4-10.4); Platelet Count 198 thou/uL (130-400); RBC Distribution Width 13.6 % (11.5-14.5); Red Blood Cell (RBC) Count 2.52 mill/uL (4.20-5.40); White Blood Cell (WBC) Count 5.1 thou/uL (4.8-10.8)
[2017-05-06 05:47] LABS: Anion Gap 17 mmol/L (10-20); BUN (Urea Nitrogen) 69 mg/dL (9.8-20.1); Calc. Creatinine Clearance 13 mL/min (70-130); Calcium 7.9 mg/dL (7.8-10.44); Carbon Dioxide 19 mmol/L (23-31); Chloride 109 mmol/L (98-107); Estimated GFR-MDRD 18; Glucose 95 mg/dL (83-110); Potassium 4.6 mmol/L (3.5-5.1); Sodium 140 mmol/L (136-145)
[2017-05-06] MEDS: Ascorbic Acid 500 mg Chewable Tablet PO SCH ×2 (08:35→17:05)
[2017-05-06] MEDS: Ferrous Sulfate 325 MG TAB PO SCH ×2 (08:35→17:06)
[2017-05-06] MEDS: cloNIDine HCl 0.1 MG TAB PO SCH ×2 (08:36→21:39)
[2017-05-06] MEDS: Lisinopril 10 MG TAB PO SCH (08:37)
[2017-05-06] MEDS: Proctozone-HC 2.5% Cream 30 GM TUBE PR SCH ×2 (08:37→21:40)
[2017-05-06] MEDS: Ondansetron ODT 4 MG TAB PO PRN (10:43)
[2017-05-06] MEDS: METHOCARBAMOL PO PRN (10:43)
[2017-05-06] MEDS: traMADol HCl 50 MG TAB PO PRN (15:20)
[2017-05-06] MEDS ORDERED: Epoetin (ESRD) 20,000 UNITS/ML ONE (17:18)
[2017-05-06] MEDS: Epoetin (ESRD) 20,000 UNITS/ML SC SCH (17:34)
[2017-05-06] MEDS: Famotidine 20 MG TAB PO SCH (21:39)
[2017-05-06] MEDS: Mirtazapine 15 MG TAB PO SCH (21:40)
[2017-05-07] MEDS: cloNIDine HCl 0.1 MG TAB PO SCH ×2 (08:26→20:17)
[2017-05-07] MEDS: Famotidine 20 MG TAB PO SCH ×2 (08:26→20:17)
[2017-05-07] MEDS: Ascorbic Acid 500 mg Chewable Tablet PO SCH ×2 (08:26→16:23)
[2017-05-07] MEDS: Ferrous Sulfate 325 MG TAB PO SCH ×2 (08:26→16:24)
[2017-05-07] MEDS: Proctozone-HC 2.5% Cream 30 GM TUBE PR SCH ×2 (08:35→20:37)
[2017-05-07] MEDS: METHOCARBAMOL PO PRN ×2 (11:14→16:25)
[2017-05-07] MEDS: traMADol HCl 50 MG TAB PO PRN ×2 (13:28→20:14)
[2017-05-07] MEDS: Mirtazapine 15 MG TAB PO SCH (20:17)
[2017-05-08] MEDS: Ascorbic Acid 500 mg Chewable Tablet PO SCH ×2 (08:32→17:15)
[2017-05-08] MEDS: Famotidine 20 MG TAB PO SCH ×2 (08:32→21:47)
[2017-05-08] MEDS: Ferrous Sulfate 325 MG TAB PO SCH ×2 (08:32→17:15)
[2017-05-08] MEDS: cloNIDine HCl 0.1 MG TAB PO SCH ×2 (08:32→21:46)
[2017-05-08] MEDS: Proctozone-HC 2.5% Cream 30 GM TUBE PR SCH ×2 (09:01→21:47)
[2017-05-08] MEDS: traMADol HCl 50 MG TAB PO PRN ×2 (13:49→21:50)
[2017-05-08] MEDS: fentaNYL 50 mcg/hour Patch TD SCH (15:16)
[2017-05-08] MEDS: Mirtazapine 15 MG TAB PO SCH (21:47)
[2017-05-09] MEDS: Famotidine 20 MG TAB PO SCH ×2 (08:26→20:24)
[2017-05-09] MEDS: Ascorbic Acid 500 mg Chewable Tablet PO SCH ×2 (08:26→16:39)
[2017-05-09] MEDS: Ferrous Sulfate 325 MG TAB PO SCH ×2 (08:26→16:39)
[2017-05-09] MEDS: cloNIDine HCl 0.1 MG TAB PO SCH ×2 (08:26→20:24)
[2017-05-09] MEDS: Proctozone-HC 2.5% Cream 30 GM TUBE PR SCH ×2 (08:27→20:25)
[2017-05-09] MEDS: traMADol HCl 50 MG TAB PO PRN ×2 (11:26→20:25)
[2017-05-09] MEDS: METHOCARBAMOL PO PRN (18:29)
[2017-05-09] MEDS: Mirtazapine 15 MG TAB PO SCH (20:25)
--- NOTE | 2017-05-10 08:02 | ULT ---
RENAL SONOGRAM: DATE: 05/10/17. HISTORY: Cystic kidney disease. FINDINGS: Kidneys demonstrate increased echogenicity bilaterally with mild renal cortical thinning. The right kidney measures 9.8 cm x 3.9 cm with the left kidney measuring 9.3 cm x 4.1 cm. There are several anechoic structures seen involving the kidneys bilaterally demonstrating sonographic characteristics most consistent with multiple cysts. The largest cyst in the superior pole right kidney measures 1 .7 cm. The largest cyst in the lateral aspect mid portion left kidney measures 1.4 cm. There is no hydronephrosis, nephric renal calculus, or perinephric fluid collection. No definite so lid renal mass is appreciated. Urinary bladder is distended with a small amount of echogenic material seen probably related to a sm all amount of debris. The patient was unable to void during the exam. Postvoid residual was 293 mL . IMPRESSION: 1. Echogenic bilateral kidneys with thinning of the renal cortex suggesting chronic medical renal d isease. 2. Bilateral renal cysts. 3. No evidence of hydronephrosis. 4. Large postvoid residual of 293 mL. POS: [facility]
[2017-05-10] MEDS: cloNIDine HCl 0.1 MG TAB PO SCH ×2 (08:14→20:32)
[2017-05-10] MEDS: Famotidine 20 MG TAB PO SCH ×2 (08:14→20:31)
[2017-05-10] MEDS: Ascorbic Acid 500 mg Chewable Tablet PO SCH ×2 (08:15→16:15)
[2017-05-10] MEDS: Ferrous Sulfate 325 MG TAB PO SCH ×2 (08:15→16:16)
[2017-05-10] MEDS: Proctozone-HC 2.5% Cream 30 GM TUBE PR SCH ×2 (08:17→20:33)
[2017-05-10] MEDS: traMADol HCl 50 MG TAB PO PRN ×2 (11:42→20:31)
[2017-05-10] MEDS: METHOCARBAMOL PO PRN ×2 (13:48→18:26)
[2017-05-10] MEDS: Mirtazapine 15 MG TAB PO SCH (20:33)
[2017-05-11] MEDS: Ferrous Sulfate 325 MG TAB PO SCH ×2 (07:56→16:57)
[2017-05-11] MEDS: cloNIDine HCl 0.1 MG TAB PO SCH ×2 (07:56→21:22)
[2017-05-11] MEDS: Famotidine 20 MG TAB PO SCH ×2 (07:57→21:21)
[2017-05-11] MEDS: Ascorbic Acid 500 mg Chewable Tablet PO SCH ×2 (07:57→16:57)
[2017-05-11] MEDS: METHOCARBAMOL PO PRN ×2 (10:12→14:05)
[2017-05-11] MEDS: Proctozone-HC 2.5% Cream 30 GM TUBE PR SCH ×2 (13:06→21:22)
[2017-05-11] MEDS: fentaNYL 50 mcg/hour Patch TD SCH (16:12)
[2017-05-11] MEDS: traMADol HCl 50 MG TAB PO PRN (16:16)
[2017-05-11] MEDS ORDERED: Diazepam 5 MG TAB PO SCH (18:30)
[2017-05-11] MEDS: Mirtazapine 15 MG TAB PO SCH (21:22)
[2017-05-12] MEDS: cloNIDine HCl 0.1 MG TAB PO SCH ×2 (08:20→21:48)
[2017-05-12] MEDS: Famotidine 20 MG TAB PO SCH ×2 (08:20→21:48)
[2017-05-12] MEDS: Ascorbic Acid 500 mg Chewable Tablet PO SCH ×2 (08:21→17:34)
[2017-05-12] MEDS: Ferrous Sulfate 325 MG TAB PO SCH ×2 (08:21→17:34)
[2017-05-12] MEDS: Proctozone-HC 2.5% Cream 30 GM TUBE PR SCH ×2 (08:21→21:49)
[2017-05-12] MEDS: METHOCARBAMOL PO PRN ×2 (14:48→21:50)
[2017-05-12] MEDS: traMADol HCl 50 MG TAB PO PRN (17:34)
[2017-05-12] MEDS: Mirtazapine 15 MG TAB PO SCH (21:48)
[2017-05-13] MEDS: Ascorbic Acid 500 mg Chewable Tablet PO SCH ×2 (07:57→16:53)
[2017-05-13] MEDS: Ferrous Sulfate 325 MG TAB PO SCH ×2 (07:58→16:53)
[2017-05-13] MEDS: Famotidine 20 MG TAB PO SCH ×2 (07:58→20:59)
[2017-05-13] MEDS: cloNIDine HCl 0.1 MG TAB PO SCH ×2 (07:58→20:58)
[2017-05-13] MEDS: Proctozone-HC 2.5% Cream 30 GM TUBE PR SCH ×2 (07:59→20:59)
[2017-05-13] MEDS: METHOCARBAMOL PO PRN ×3 (09:14→21:02)
[2017-05-13] MEDS: traMADol HCl 50 MG TAB PO PRN (16:57)
[2017-05-13] MEDS: Mirtazapine 15 MG TAB PO SCH (20:59)
[2017-05-14] MEDS: Ascorbic Acid 500 mg Chewable Tablet PO SCH ×2 (08:15→17:04)
[2017-05-14] MEDS: Famotidine 20 MG TAB PO SCH ×2 (08:15→19:19)
[2017-05-14] MEDS: cloNIDine HCl 0.1 MG TAB PO SCH ×2 (08:15→19:20)
[2017-05-14] MEDS: Proctozone-HC 2.5% Cream 30 GM TUBE PR SCH ×2 (08:16→19:21)
[2017-05-14] MEDS: Ferrous Sulfate 325 MG TAB PO SCH ×2 (08:16→17:04)
[2017-05-14] MEDS: fentaNYL 50 mcg/hour Patch TD SCH (15:31)
[2017-05-14] MEDS: traMADol HCl 50 MG TAB PO PRN (19:18)
[2017-05-14] MEDS: Mirtazapine 15 MG TAB PO SCH (19:20)
[2017-05-15] MEDS: traMADol HCl 50 MG TAB PO PRN ×3 (01:49→19:32)
[2017-05-15] MEDS: cloNIDine HCl 0.1 MG TAB PO SCH ×2 (08:14→21:06)
[2017-05-15] MEDS: Ascorbic Acid 500 mg Chewable Tablet PO SCH ×2 (08:14→16:42)
[2017-05-15] MEDS: Ferrous Sulfate 325 MG TAB PO SCH ×2 (08:15→16:41)
[2017-05-15] MEDS: Famotidine 20 MG TAB PO SCH ×2 (08:15→21:06)
[2017-05-15] MEDS: Proctozone-HC 2.5% Cream 30 GM TUBE PR SCH (08:15)
[2017-05-15] MEDS: METHOCARBAMOL PO PRN (16:44)
[2017-05-15] MEDS ORDERED: Proctozone-HC 2.5% Cream 30 GM TUBE PR PRN (16:46)
[2017-05-15] MEDS: Mirtazapine 15 MG TAB PO SCH (21:06)
[2017-05-16] MEDS: Ascorbic Acid 500 mg Chewable Tablet PO SCH ×2 (09:07→17:36)
[2017-05-16] MEDS: cloNIDine HCl 0.1 MG TAB PO SCH ×2 (09:07→19:15)
[2017-05-16] MEDS: Famotidine 20 MG TAB PO SCH ×2 (09:07→19:14)
[2017-05-16] MEDS: Ferrous Sulfate 325 MG TAB PO SCH ×2 (09:07→17:36)
[2017-05-16 18:25] LABS: #Eosinphils 0.3 thou/uL (0.0-0.7); #Lymphocytes 1.7 thou/uL (1.20-3.40); #Monocytes 0.6 thou/uL (0.11-0.59); #Neutrophils 2.9 thou/uL (1.40-6.50); %Basophils 0.8 % (0.0-1.0); %Eosinophils 4.7 % (0.0-10.0); %Lymphocytes 31.4 % (21.0-51.0); %Monocytes 10.2 % (0.0-10.0); Hemoglobin 9.7 g/dL (12.0-16.0); Mean Corpuscular HGB CONC 31.4 g/dL (32.0-36.0); Mean Corpuscular Hemoglobin 30.1 pg (27.0-31.0); Mean Corpuscular Volume 95.6 fl (81.0-99.0); Mean Platelet Volume 6.5 fL (7.4-10.4); Platelet Count 213 thou/uL (130-400); RBC Distribution Width 14.7 % (11.5-14.5); Red Blood Cell (RBC) Count 3.23 mill/uL (4.20-5.40); White Blood Cell (WBC) Count 5.5 thou/uL (4.8-10.8)
[2017-05-16 18:44] LABS: ALT (SGPT) 13 U/L (8-55); AST (SGOT) 14 U/L (5-34); Alkaline Phosphatase 106 U/L (40-150); Anion Gap 19 mmol/L (10-20); BUN (Urea Nitrogen) 63 mg/dL (9.8-20.1); Bilirubin, Total Less than 0.3 mg/dL (0.2-1.2); Calc. Creatinine Clearance 11 mL/min (70-130); Calcium 8.6 mg/dL (7.8-10.44); Carbon Dioxide 18 mmol/L (23-31); Chloride 107 mmol/L (98-107); Estimated GFR-MDRD 14; Globulin 3.1 g/dL (2.4-3.5); Glucose 102 mg/dL (83-110); Potassium 5.7 mmol/L (3.5-5.1); Protein, Total 7.1 g/dL (6.0-8.3); Sodium 138 mmol/L (136-145)
[2017-05-16] MEDS: traMADol HCl 50 MG TAB PO PRN (19:13)
[2017-05-16] MEDS: Mirtazapine 15 MG TAB PO SCH (19:15)
[2017-05-16] MEDS: VESICARE 5MG PO SCH (19:16)
[2017-05-17] MEDS: Ferrous Sulfate 325 MG TAB PO SCH ×2 (08:11→17:26)
[2017-05-17] MEDS: Ascorbic Acid 500 mg Chewable Tablet PO SCH ×2 (08:11→17:26)
[2017-05-17] MEDS: Famotidine 20 MG TAB PO SCH ×2 (08:12→20:50)
[2017-05-17] MEDS: cloNIDine HCl 0.1 MG TAB PO SCH ×2 (08:12→20:51)
[2017-05-17] MEDS: METHOCARBAMOL PO PRN (10:09)
[2017-05-17] MEDS: fentaNYL 50 mcg/hour Patch TD SCH (13:54)
[2017-05-17] MEDS: traMADol HCl 50 MG TAB PO PRN ×2 (14:23→20:58)
[2017-05-17 17:15] LABS: Iron 47 ug/dL (50-170); Iron Binding Capacity, Total 239 mcg/dL (265-497)
[2017-05-17 17:31] LABS: Creatinine, Urine 24.47 mg/dL (47-110); Microalbumin Urine 12.7 mg/dL (0.5-50.0)
[2017-05-17] MEDS: Sodium Chloride 0.9% 1,000 ML IV SCH (17:31)
[2017-05-17] MEDS ORDERED: Diazepam 5 MG TAB PO PRN (18:05)
[2017-05-17] MEDS: Mirtazapine 15 MG TAB PO SCH (20:51)
[2017-05-17] MEDS: VESICARE 5MG PO SCH (20:53)
[2017-05-17 20:55] LABS: Iron 48 ug/dL (50-170); Iron Binding Capacity, Total 240 mcg/dL (265-497)
[2017-05-18] MEDS: Sodium Chloride 0.9% 1,000 ML IV SCH ×2 (05:43→19:43)
[2017-05-18] MEDS: Ascorbic Acid 500 mg Chewable Tablet PO SCH ×2 (08:04→16:41)
[2017-05-18] MEDS: Ferrous Sulfate 325 MG TAB PO SCH ×2 (08:04→16:41)
[2017-05-18] MEDS: cloNIDine HCl 0.1 MG TAB PO SCH ×2 (08:08→19:31)
[2017-05-18] MEDS: Famotidine 20 MG TAB PO SCH ×2 (08:08→19:31)
[2017-05-18 13:39] LABS: Anion Gap 17 mmol/L (10-20); BUN (Urea Nitrogen) 62 mg/dL (9.8-20.1); Calc. Creatinine Clearance 13 mL/min (70-130); Calcium 7.9 mg/dL (7.8-10.44); Carbon Dioxide 18 mmol/L (23-31); Chloride 112 mmol/L (98-107); Estimated GFR-MDRD 18; Glucose 75 mg/dL (83-110); Sodium 142 mmol/L (136-145)
[2017-05-18] MEDS: METHOCARBAMOL PO PRN (16:44)
[2017-05-18] MEDS: Mirtazapine 15 MG TAB PO SCH (19:30)
[2017-05-18] MEDS: traMADol HCl 50 MG TAB PO PRN (19:31)
[2017-05-18] MEDS: VESICARE 5MG PO SCH (19:33)
[2017-05-19] MEDS ORDERED: Sodium Chloride 0.9% 1,000 ML BAG ONE (07:16)
[2017-05-19 09:57] LABS: Anion Gap 17 mmol/L (10-20); BUN (Urea Nitrogen) 55 mg/dL (9.8-20.1); Calc. Creatinine Clearance 14 mL/min (70-130); Carbon Dioxide 16 mmol/L (23-31); Chloride 113 mmol/L (98-107); Estimated GFR-MDRD 20; Glucose 119 mg/dL (83-110); Potassium 4.4 mmol/L (3.5-5.1); Sodium 142 mmol/L (136-145)
[2017-05-19] MEDS: Sodium Chloride 0.9% 1,000 ML IV SCH (10:24)
[2017-05-19] MEDS: Ferrous Sulfate 325 MG TAB PO SCH ×2 (10:25→17:21)
[2017-05-19] MEDS: Ascorbic Acid 500 mg Chewable Tablet PO SCH ×2 (10:25→17:21)
[2017-05-19] MEDS: cloNIDine HCl 0.1 MG TAB PO SCH ×2 (10:26→20:04)
[2017-05-19] MEDS: Famotidine 20 MG TAB PO SCH ×2 (10:26→20:04)
[2017-05-19] MEDS: METHOCARBAMOL PO PRN ×2 (10:32→17:30)
[2017-05-19] MEDS: traMADol HCl 50 MG TAB PO PRN ×2 (13:49→22:51)
[2017-05-19] MEDS: VESICARE 5MG PO SCH (20:02)
[2017-05-19] MEDS: Mirtazapine 15 MG TAB PO SCH (20:03)
[2017-05-20] MEDS: Sodium Chloride 0.9% 1,000 ML IV SCH ×2 (02:10→16:34)
[2017-05-20] MEDS: Ascorbic Acid 500 mg Chewable Tablet PO SCH ×2 (08:46→16:27)
[2017-05-20] MEDS: Famotidine 20 MG TAB PO SCH ×2 (08:46→20:15)
[2017-05-20] MEDS: Ferrous Sulfate 325 MG TAB PO SCH ×2 (08:46→16:27)
[2017-05-20] MEDS: cloNIDine HCl 0.1 MG TAB PO SCH ×2 (08:47→19:32)
[2017-05-20] MEDS: METHOCARBAMOL PO PRN (10:41)
[2017-05-20] MEDS: fentaNYL 50 mcg/hour Patch TD SCH (15:03)
[2017-05-20] MEDS: Epoetin (ESRD) 20,000 UNITS/ML SC SCH (16:27)
[2017-05-20] MEDS: traMADol HCl 50 MG TAB PO PRN (19:50)
[2017-05-20] MEDS: Mirtazapine 15 MG TAB PO SCH (20:15)
[2017-05-20] MEDS: VESICARE 5MG PO SCH (20:15)
[2017-05-21] MEDS: Sodium Chloride 0.9% 1,000 ML IV SCH (01:50)
[2017-05-21] MEDS: Ferrous Sulfate 325 MG TAB PO SCH ×2 (08:13→17:32)
[2017-05-21] MEDS: Ascorbic Acid 500 mg Chewable Tablet PO SCH ×2 (08:13→17:32)
[2017-05-21] MEDS: cloNIDine HCl 0.1 MG TAB PO SCH ×2 (08:13→19:56)
[2017-05-21] MEDS: Famotidine 20 MG TAB PO SCH ×2 (08:14→19:56)
[2017-05-21] MEDS: traMADol HCl 50 MG TAB PO PRN (18:20)
[2017-05-21] MEDS: Bisacodyl 5 MG TAB PO PRN (19:12)
[2017-05-21] MEDS: Mirtazapine 15 MG TAB PO SCH (19:56)
[2017-05-21] MEDS: VESICARE 5MG PO SCH (19:57)
[2017-05-22] MEDS: Ascorbic Acid 500 mg Chewable Tablet PO SCH ×2 (08:42→17:27)
[2017-05-22] MEDS: Ferrous Sulfate 325 MG TAB PO SCH ×2 (08:42→17:27)
[2017-05-22] MEDS: Famotidine 20 MG TAB PO SCH ×2 (08:42→20:48)
[2017-05-22] MEDS: cloNIDine HCl 0.1 MG TAB PO SCH ×2 (08:43→20:48)
[2017-05-22] MEDS: traMADol HCl 50 MG TAB PO PRN ×2 (15:45→20:47)
[2017-05-22] MEDS: Mirtazapine 15 MG TAB PO SCH (20:48)
[2017-05-22] MEDS: VESICARE 5MG PO SCH (20:48)
[2017-05-23] MEDS: Famotidine 20 MG TAB PO SCH ×2 (08:25→21:24)
[2017-05-23] MEDS: Ascorbic Acid 500 mg Chewable Tablet PO SCH ×2 (08:25→17:33)
[2017-05-23] MEDS: Ferrous Sulfate 325 MG TAB PO SCH ×2 (08:26→17:34)
[2017-05-23] MEDS: cloNIDine HCl 0.1 MG TAB PO SCH ×2 (08:26→21:24)
[2017-05-23 08:59] LABS: Anion Gap 15 mmol/L (10-20); BUN (Urea Nitrogen) 46 mg/dL (9.8-20.1); Calc. Creatinine Clearance 14 mL/min (70-130); Carbon Dioxide 17 mmol/L (23-31); Chloride 113 mmol/L (98-107); Estimated GFR-MDRD 20; Glucose 85 mg/dL (83-110); Potassium 4.4 mmol/L (3.5-5.1); Sodium 141 mmol/L (136-145)
[2017-05-23] MEDS: traMADol HCl 50 MG TAB PO PRN (11:28)
[2017-05-23] MEDS: METHOCARBAMOL PO PRN (14:23)
[2017-05-23] MEDS: fentaNYL 50 mcg/hour Patch TD SCH (14:26)
[2017-05-23] MEDS: Mirtazapine 15 MG TAB PO SCH (21:24)
[2017-05-23] MEDS: VESICARE 10MG PO SCH (21:25)
[2017-05-24] MEDS: Ferrous Sulfate 325 MG TAB PO SCH ×2 (08:38→16:40)
[2017-05-24] MEDS: Ascorbic Acid 500 mg Chewable Tablet PO SCH ×2 (08:39→16:40)
[2017-05-24] MEDS: cloNIDine HCl 0.1 MG TAB PO SCH ×2 (08:39→21:08)
[2017-05-24] MEDS: Famotidine 20 MG TAB PO SCH ×2 (08:39→21:08)
[2017-05-24] MEDS: traMADol HCl 50 MG TAB PO PRN ×2 (09:57→18:51)
[2017-05-24] MEDS: METHOCARBAMOL PO PRN ×2 (12:56→21:15)
[2017-05-24] MEDS: Mirtazapine 15 MG TAB PO SCH (21:10)
[2017-05-24] MEDS: VESICARE 10MG PO SCH (21:16)
[2017-05-25] MEDS: Ascorbic Acid 500 mg Chewable Tablet PO SCH ×2 (08:54→16:58)
[2017-05-25] MEDS: traMADol HCl 50 MG TAB PO PRN ×2 (08:55→20:23)
[2017-05-25] MEDS: cloNIDine HCl 0.1 MG TAB PO SCH ×2 (08:55→20:22)
[2017-05-25] MEDS: Famotidine 20 MG TAB PO SCH ×2 (08:55→20:23)
[2017-05-25] MEDS: Ferrous Sulfate 325 MG TAB PO SCH ×2 (08:55→16:59)
[2017-05-25] MEDS: METHOCARBAMOL PO PRN (12:26)
[2017-05-25] MEDS: Mirtazapine 15 MG TAB PO SCH (20:22)
[2017-05-25] MEDS: VESICARE 10MG PO SCH (20:23)
[2017-05-26] MEDS: Ferrous Sulfate 325 MG TAB PO SCH ×2 (08:25→17:41)
[2017-05-26] MEDS: Famotidine 20 MG TAB PO SCH ×2 (08:25→20:42)
[2017-05-26] MEDS: cloNIDine HCl 0.1 MG TAB PO SCH ×2 (08:26→20:41)
[2017-05-26] MEDS: Ascorbic Acid 500 mg Chewable Tablet PO SCH ×2 (08:26→17:41)
[2017-05-26] MEDS: traMADol HCl 50 MG TAB PO PRN ×3 (09:34→20:40)
[2017-05-26] MEDS: METHOCARBAMOL PO PRN (11:26)
[2017-05-26] MEDS: fentaNYL 50 mcg/hour Patch TD SCH (15:23)
[2017-05-26] MEDS: Mirtazapine 15 MG TAB PO SCH (20:43)
[2017-05-26] MEDS: VESICARE 10MG PO SCH (20:45)
[2017-05-27] MEDS: Famotidine 20 MG TAB PO SCH ×2 (08:25→21:01)
[2017-05-27] MEDS: Ferrous Sulfate 325 MG TAB PO SCH ×2 (08:25→17:22)
[2017-05-27] MEDS: Ascorbic Acid 500 mg Chewable Tablet PO SCH (08:25)
[2017-05-27] MEDS: cloNIDine HCl 0.1 MG TAB PO SCH ×2 (08:26→21:01)
[2017-05-27] MEDS: METHOCARBAMOL PO PRN (10:29)
[2017-05-27] MEDS: traMADol HCl 50 MG TAB PO PRN (21:00)
[2017-05-27] MEDS: Sodium Bicarbonate Tab 325 MG TAB PO SCH (21:00)
[2017-05-27] MEDS: VESICARE 10MG PO SCH (21:01)
[2017-05-27] MEDS: Mirtazapine 15 MG TAB PO SCH (21:01)
[2017-05-28] MEDS: cloNIDine HCl 0.1 MG TAB PO SCH ×2 (08:56→19:48)
[2017-05-28] MEDS: Ferrous Sulfate 325 MG TAB PO SCH ×2 (08:56→17:08)
[2017-05-28] MEDS: Famotidine 20 MG TAB PO SCH ×2 (08:57→19:48)
[2017-05-28] MEDS: Sodium Bicarbonate Tab 325 MG TAB PO SCH ×3 (08:57→19:47)
[2017-05-28] MEDS: METHOCARBAMOL PO PRN (08:59)
[2017-05-28] MEDS: traMADol HCl 50 MG TAB PO PRN (18:16)
[2017-05-28] MEDS: Mirtazapine 15 MG TAB PO SCH (19:48)
[2017-05-28] MEDS: VESICARE 10MG PO SCH (19:49)
[2017-05-29] MEDS: cloNIDine HCl 0.1 MG TAB PO SCH ×2 (08:42→20:16)
[2017-05-29] MEDS: Famotidine 20 MG TAB PO SCH ×2 (08:42→20:17)
[2017-05-29] MEDS: Sodium Bicarbonate Tab 325 MG TAB PO SCH ×3 (08:42→20:17)
[2017-05-29] MEDS: Ferrous Sulfate 325 MG TAB PO SCH ×2 (08:42→17:10)
[2017-05-29] MEDS: traMADol HCl 50 MG TAB PO PRN ×2 (12:55→20:15)
[2017-05-29] MEDS: fentaNYL 50 mcg/hour Patch TD SCH (15:04)
[2017-05-29] MEDS: METHOCARBAMOL PO PRN (18:14)
[2017-05-29] MEDS: Mirtazapine 15 MG TAB PO SCH (20:17)
[2017-05-29] MEDS: VESICARE 10MG PO SCH (20:18)
[2017-05-30] MEDS: Ferrous Sulfate 325 MG TAB PO SCH ×2 (07:55→17:25)
[2017-05-30] MEDS: Famotidine 20 MG TAB PO SCH ×2 (07:59→20:58)
[2017-05-30] MEDS: cloNIDine HCl 0.1 MG TAB PO SCH ×2 (07:59→20:57)
[2017-05-30] MEDS: Sodium Bicarbonate Tab 325 MG TAB PO SCH ×3 (08:00→20:58)
[2017-05-30] MEDS: METHOCARBAMOL PO PRN (13:34)
[2017-05-30] MEDS: traMADol HCl 50 MG TAB PO PRN (20:58)
[2017-05-30] MEDS: Mirtazapine 15 MG TAB PO SCH (20:58)
[2017-05-30] MEDS: VESICARE 10MG PO SCH (21:00)
[2017-05-31 02:04] VITALS: BMI 19.1
[2017-05-31] MEDS ORDERED: Sodium Chloride 0.9% 1,000 ML BAG ONE (05:51)
[2017-05-31] MEDS: Famotidine 20 MG TAB PO SCH ×2 (08:47→20:19)
[2017-05-31] MEDS: Ferrous Sulfate 325 MG TAB PO SCH ×2 (08:47→16:23)
[2017-05-31] MEDS: cloNIDine HCl 0.1 MG TAB PO SCH ×2 (08:47→20:18)
[2017-05-31] MEDS: METHOCARBAMOL PO PRN ×2 (08:48→13:39)
[2017-05-31] MEDS: Sodium Bicarbonate Tab 325 MG TAB PO SCH ×3 (08:48→20:18)
[2017-05-31 10:15] LABS: #Eosinphils 0.3 thou/uL (0.0-0.7); #Lymphocytes 1.4 thou/uL (1.20-3.40); #Monocytes 0.4 thou/uL (0.11-0.59); #Neutrophils 3.3 thou/uL (1.40-6.50); %Basophils 0.9 % (0.0-1.0); %Eosinophils 5.8 % (0.0-10.0); %Lymphocytes 25.6 % (21.0-51.0); %Monocytes 7.8 % (0.0-10.0); %Neutrophils 59.9 % (42.0-75.0); Hemoglobin 9.9 g/dL (12.0-16.0); Mean Corpuscular HGB CONC 32.2 g/dL (32.0-36.0); Mean Corpuscular Hemoglobin 30.2 pg (27.0-31.0); Mean Corpuscular Volume 93.7 fl (81.0-99.0); Mean Platelet Volume 6.6 fL (7.4-10.4); Platelet Count 219 thou/uL (130-400); RBC Distribution Width 15.1 % (11.5-14.5); Red Blood Cell (RBC) Count 3.29 mill/uL (4.20-5.40); White Blood Cell (WBC) Count 5.5 thou/uL (4.8-10.8)
[2017-05-31 10:26] LABS: Anion Gap 16 mmol/L (10-20); BUN (Urea Nitrogen) 48 mg/dL (9.8-20.1); Calc. Creatinine Clearance 12 mL/min (70-130); Calcium 8.2 mg/dL (7.8-10.44); Carbon Dioxide 18 mmol/L (23-31); Chloride 108 mmol/L (98-107); Estimated GFR-MDRD 17; Glucose 134 mg/dL (83-110); Potassium 4.3 mmol/L (3.5-5.1); Sodium 138 mmol/L (136-145)
[2017-05-31] MEDS: Mirtazapine 15 MG TAB PO SCH (20:19)
[2017-05-31] MEDS: traMADol HCl 50 MG TAB PO PRN (20:20)
[2017-05-31] MEDS: VESICARE 10MG PO SCH (20:21)
[2017-06-01] MEDS: Sodium Bicarbonate Tab 325 MG TAB PO SCH ×3 (08:57→20:38)
[2017-06-01] MEDS: cloNIDine HCl 0.1 MG TAB PO SCH ×2 (08:57→20:38)
[2017-06-01] MEDS: Ferrous Sulfate 325 MG TAB PO SCH ×2 (08:58→17:02)
[2017-06-01] MEDS: Famotidine 20 MG TAB PO SCH ×2 (08:58→20:38)
[2017-06-01] MEDS: METHOCARBAMOL PO PRN (08:59)
[2017-06-01] MEDS: traMADol HCl 50 MG TAB PO PRN ×2 (11:10→20:39)
[2017-06-01] MEDS: Bisacodyl 5 MG TAB PO PRN (14:36)
[2017-06-01] MEDS: fentaNYL 50 mcg/hour Patch TD SCH (14:47)
[2017-06-01] MEDS: Mirtazapine 15 MG TAB PO SCH (20:38)
[2017-06-01] MEDS: VESICARE 10MG PO SCH (20:38)
[2017-06-02] MEDS: Sodium Bicarbonate Tab 325 MG TAB PO SCH ×3 (08:30→20:33)
[2017-06-02] MEDS: cloNIDine HCl 0.1 MG TAB PO SCH ×2 (08:30→20:32)
[2017-06-02] MEDS: Famotidine 20 MG TAB PO SCH ×2 (08:31→20:32)
[2017-06-02] MEDS: Ferrous Sulfate 325 MG TAB PO SCH ×2 (08:31→17:05)
[2017-06-02] MEDS: traMADol HCl 50 MG TAB PO PRN ×2 (13:50→20:46)
[2017-06-02] MEDS: METHOCARBAMOL PO PRN (18:52)
[2017-06-02] MEDS: Mirtazapine 15 MG TAB PO SCH (20:32)
[2017-06-02] MEDS: VESICARE 10MG PO SCH (20:33)
[2017-06-03 08:01] VITALS: BP 168/76; TEMP 96.3
[2017-06-03] MEDS: Sodium Bicarbonate Tab 325 MG TAB PO SCH (08:21)
[2017-06-03] MEDS: Ferrous Sulfate 325 MG TAB PO SCH (08:21)
[2017-06-03] MEDS: cloNIDine HCl 0.1 MG TAB PO SCH (08:21)
[2017-06-03] MEDS: Famotidine 20 MG TAB PO SCH (08:23)
[2017-06-03] MEDS: traMADol HCl 50 MG TAB PO PRN (10:46)
[2017-06-03] MEDS: Epoetin (ESRD) 20,000 UNITS/ML SC SCH (12:16)
== END 2017-06-03 11:47 | disposition home or self-care (01) | DRG 560 ==
LOC: MADMS 19:26
PROVIDERS: ADMIT Family Medicine; ATTEND Family Medicine
PROC: 30233N1 Transfusion of Nonautologous Red Blood Cells into Peripheral Vein, Percutaneous Approach (ICD-10-PCS; principal; 2017-05-04)
DX: S82.251D Displaced comminuted fracture of shaft of right tibia, subsequent encounter for closed fracture with routine healing (principal); Z68.1 Body mass index [BMI] 19.9 or less, adult; N17.9 Acute kidney failure, unspecified; E87.5 Hyperkalemia; D63.8 Anemia in other chronic diseases classified elsewhere; I82.811 Embolism and thrombosis of superficial veins of right lower extremity; S82.451D Displaced comminuted fracture of shaft of right fibula, subsequent encounter for closed fracture with routine healing; I12.9 Hypertensive chronic kidney disease with stage 1 through stage 4 chronic kidney disease, or unspecified chronic kidney disease; W01.0XXD Fall on same level from slipping, tripping and stumbling without subsequent striking against object, subsequent encounter; N18.3 Chronic kidney disease, stage 3 (moderate); R62.7 Adult failure to thrive; R63.4 Abnormal weight loss; K22.4 Dyskinesia of esophagus; K21.9 Gastro-esophageal reflux disease without esophagitis; K90.0 Celiac disease; M19.90 Unspecified osteoarthritis, unspecified site; R32 Unspecified urinary incontinence; F41.9 Anxiety disorder, unspecified; G47.00 Insomnia, unspecified
CPT/HCPCS: 36415; 36430; 76770; 80048; 80053; 82043; 82306; 83540; 83550; 83970; 84443; 85025; 86850; 86900; 86901; 87086; G8978-GP-CJ; G8978-GP-CK; G8978-GP-CL; G8979-GP-CI; G8979-GP-CJ; J7050; P9016; Q4081

== ENCOUNTER 2017-06-16 15:44 | Outpatient (CLI) | payer MEDICARE ==
[2017-06-16 17:02] LABS: #Basophils 0.1 thou/uL (0.0-0.2); #Eosinphils 0.1 thou/uL (0.0-0.7); #Monocytes 0.5 thou/uL (0.11-0.59); %Eosinophils 1.8 % (0.0-10.0); %Lymphocytes 17.2 % (21.0-51.0); %Monocytes 8.7 % (0.0-10.0); %Neutrophils 71.3 % (42.0-75.0); Hemoglobin 10.8 g/dL (12.0-16.0); Mean Corpuscular HGB CONC 31.2 g/dL (32.0-36.0); Mean Corpuscular Hemoglobin 29.5 pg (27.0-31.0); Mean Corpuscular Volume 94.4 fl (81.0-99.0); Mean Platelet Volume 7.2 fL (7.4-10.4); Platelet Count 209 thou/uL (130-400); RBC Distribution Width 14.3 % (11.5-14.5); Red Blood Cell (RBC) Count 3.66 mill/uL (4.20-5.40); White Blood Cell (WBC) Count 5.6 thou/uL (4.8-10.8)
[2017-06-16 17:06] LABS: Anion Gap 17 mmol/L (10-20); BUN (Urea Nitrogen) 35 mg/dL (9.8-20.1); Calc. Creatinine Clearance 0 mL/min (70-130); Calcium 8.3 mg/dL (7.8-10.44); Carbon Dioxide 20 mmol/L (23-31); Chloride 105 mmol/L (98-107); Estimated GFR-MDRD 17; Glucose 136 mg/dL (83-110); Potassium 4.7 mmol/L (3.5-5.1); Sodium 137 mmol/L (136-145)
== END 2017-06-16 15:45 | disposition home or self-care (01) ==
LOC: MADLAB 15:44
PROVIDERS: ATTEND Family Medicine
DX: N18.4 Chronic kidney disease, stage 4 (severe) (principal)
CPT/HCPCS: 36415; 80048; 85025

== ENCOUNTER 2017-07-25 13:42 | Inpatient (IN) | payer MEDICARE ==
[~2017-07-25 13:42] MED LIST: Sodium Chloride 0.9% 1,000 ML BAG ONE; Sodium Chloride 0.9% 100 ML BAG ONE
[2017-07-25] MEDS ORDERED: Naloxone HCl 0.4 mg/ml Vial ONE (14:00)
[2017-07-25 14:11] LABS: #Basophils 0.1 thou/uL (0.0-0.2); #Lymphocytes 1.6 thou/uL (1.20-3.40); #Monocytes 0.6 thou/uL (0.11-0.59); #Neutrophils 7.9 thou/uL (1.40-6.50); %Basophils 0.6 % (0.0-1.0); %Eosinophils 0.3 % (0.0-10.0); %Lymphocytes 15.6 % (21.0-51.0); %Monocytes 6.2 % (0.0-10.0); %Neutrophils 77.3 % (42.0-75.0); Hemoglobin 12.2 g/dL (12.0-16.0); Mean Corpuscular HGB CONC 31.6 g/dL (32.0-36.0); Mean Corpuscular Hemoglobin 29.5 pg (27.0-31.0); Mean Corpuscular Volume 93.2 fl (81.0-99.0); Mean Platelet Volume 7.1 fL (7.4-10.4); Platelet Count 197 thou/uL (130-400); RBC Distribution Width 14.6 % (11.5-14.5); Red Blood Cell (RBC) Count 4.15 mill/uL (4.20-5.40); White Blood Cell (WBC) Count 10.2 thou/uL (4.8-10.8)
[2017-07-25 14:29] LABS: ALT (SGPT) 12 U/L (8-55); AST (SGOT) 20 U/L (5-34); Albumin 3.7 g/dL (3.4-4.8); Alkaline Phosphatase 107 U/L (40-150); Anion Gap 23 mmol/L (10-20); BUN (Urea Nitrogen) 57 mg/dL (9.8-20.1); Bilirubin, Total 0.4 mg/dL (0.2-1.2); Calc. Creatinine Clearance 0 mL/min (70-130); Calcium 8.1 mg/dL (7.8-10.44); Carbon Dioxide 17 mmol/L (23-31); Chloride 103 mmol/L (98-107); Estimated GFR-MDRD 8; Globulin 3.2 g/dL (2.4-3.5); Glucose 115 mg/dL (83-110); Lipase 10 U/L (8-78); Potassium 4.8 mmol/L (3.5-5.1); Protein, Total 6.9 g/dL (6.0-8.3); Sodium 138 mmol/L (136-145)
[2017-07-25] MEDS: Sodium Chloride 0.9% 1,000 ML IV SCH ×3 (14:45→21:45)
[2017-07-25 14:48] LABS: Troponin I 0.291 ng/mL (< 0.028)
[2017-07-25] MEDS ORDERED: cefTRIAXone\\ROCEPHIN 1 GM VIAL ONE (14:57)
[2017-07-25 14:59] LABS: Clarity Cloudy (Clear); Glucose, Urine (Dipstick) Negative (Negative); Leukocyte Large (Negative); Nitrite Negative (Negative); Protein, Urine (Dipstick) > or equal to 300 mg/dL (Neg-Trace)
[2017-07-25 15:00] LABS: Bilirubin Negative (Negative); Blood, Urine Moderate (Negative); Urobilinogen 0.2 mg/dL (0.2-1.0)
--- NOTE | 2017-07-25 15:02 | RAD ---
PORTABLE CHEST: HISTORY: Dehydration and mental status change. FINDINGS: Lungs appear clear. No evidence of acute infiltrate or vascular congestion. Heart size normal. IMPRESSION: No acute process. POS: [facility]
[2017-07-25 15:03] LABS: Bacteria/HPF 4+ HPF (None Seen)
--- NOTE | 2017-07-25 15:06 | CT ---
CT HEAD WITHOUT CONTRAST: Multiple tomograms obtained through the head without IV enhancement. HISTORY: Mental status change. FINDINGS: Constant patient motion degrades the study. There is cortical atrophy. Ventricles have normal size and position considering the degree of atrop hy. No evidence of mass or hemorrhage. No definite cortical infarct is seen. The M1 segment of the left MCA shows evidence of mild increased density. This can indicate cerebral artery thrombus, although findings are questionable on this exam due to the motion artifact. Follo wup may be of benefit. MRI would probably not be helpful unless patient could have anesthesia to st op the persistent motion. IMPRESSION: Exam is degraded from motion. No acute process identified. Question increased density of the M1 se gment of the left MCA. POS: [facility]
--- NOTE | 2017-07-25 15:08 | RAD ---
SUPINE ABDOMEN: HISTORY: Abdominal pain. FINDINGS: A large amount of stool is seen throughout the colon and to the level of the rectum. This represent chronic constipation. Nonspecific small bowel gas is seen without small bowel dilatation or eviden ce of obstruction. Deformity of the right hip with old internal fixation changes noted. There appears to be partial fu padmini and degenerative change at the right hip. IMPRESSION: Prominent stool throughout the colon as described above. Nonspecific small bowel gas pattern. POS: [facility]
[2017-07-25] MEDS ORDERED: HYDROcodone/Acetaminophen 5/325 mg Tablet PO PRN ×2 (16:31→16:33)
[2017-07-25] MEDS ORDERED: Acetaminophen 325 MG TAB PO PRN (16:31)
[2017-07-25] MEDS ORDERED: Epoetin (ESRD) 20,000 UNITS/ML SC SCH (16:45)
[2017-07-25] MEDS ORDERED: cefTRIAXone\\ROCEPHIN 1 GM in Sodium Chloride 0.9% 100 ML IVPB SCH (17:00)
[2017-07-25] MEDS: Fleet Enema 133 ML BOT FS SCH (17:06)
[2017-07-25] MEDS: Ondansetron ODT 4 MG TAB PO PRN (20:25)
[2017-07-25] MEDS: Simethicone Chewable 80 MG TAB PO SCH ×3 (20:26→21:43)
[2017-07-25] MEDS: Pantoprazole 40 MG VIAL IVP SCH (21:33)
[2017-07-25] MEDS: cloNIDine HCl 0.1 MG TAB PO SCH (21:42)
[2017-07-25] MEDS: Sodium Bicarbonate Tab 325 MG TAB PO SCH (21:43)
[2017-07-25] MEDS: Ferrous Sulfate 325 MG TAB PO SCH (21:43)
[2017-07-25] MEDS: Docusate 100 MG CAP PO SCH (21:44)
--- NOTE | 2017-07-25 22:51 | HP ---
DATE OF ADMISSION: 07/25/2017 ADMITTING PHYSICIAN: Diane Carrion M.D. PRIMARY CARE PHYSICIAN: Kaylee Talamantes M.D. REASON FOR ADMISSION: Altered mental status. HISTORY OF PRESENT ILLNESS AND HOSPITAL COURSE: Ms. Morelos is a 77-year-old female with significant multiple chronic medical conditions including chronic pain syndrome from previous fracture of the right proximal tibia on 03/2017, Celiac disease, failure to thrive, hypertension and abnormality of gait due to imbalance. The patient is currently on multiple pain medications including Fentanyl, tramadol. She is also on Robaxin. The patient also has history of chronic kidney disease with worsening creatinine, latest creatinine was 4 per ER report. The patient has declined aggressive interventions for this, including the renal dialysis . The patient was reported with severe confusion today and was sent to [facility] by her family. There was a suspicion of overdoing her pain medications per family's report. As per daughter, they found a morphine pill on the floor with her today. The Morphine prescription was from the old bottle prescribed by previous PCP .Family suspects that patient could have been using this lately without their knowledge. Daughter also reports that the patient has not been eating nor drinking adequately lately. Per her son-in- law who is a nurse, patient's pupils are significantly smaller than usual when they found her at home. There was no localizing symptoms reported. When presented at the ER, the patient was awake and oriented to person, not responsive to verbal stimuli per ER report. Cristiane score at that time was 14 with eye opening for spontaneous and verbal for confused/disoriented, and motor was 6, obeys commands. Extensive evaluation was done in the ER. Her urine was positive for significant pyuria. Her BUN was 57 and creatinine 5.25. CK was significantly elevated to 15 and troponin elevated to 0.291. There was no significant leukocytosis nor anemia noted. Of note, the patient has significant history of chronic anemia with latest hemoglobin of 9.9 as of 2016. Current hemoglobin and hematocrit were 12.2 and 38.7 respectively as of today's evaluation. Her BNP was 205.8. EKG showed normal sinus rhythm with 83 beats per minute with no ectopic and left axis deviation, per ER report There was no previous EKG available for comparison. Xray of the abdomen showed prominent stool throughout the colon which represents chronic constipation. There was a nonspecific bowel gas seen. There was no evidence of small bowel dilatation or evidence of obstruction, per radiology interpretation. Chest x- ray showed no acute process. CT of the brain showed no acute process identified , but exam was degraded from motion with a question increased density of the M1 segment of the left which can indicate cerebral artery thrombus, although findings are questionable on this exam due to the motion artifact per radiology interpretation. Treatments given at the ER include IV hydration with normal saline, bolus of 1 liter of normal saline followed with 200 mL per hour, Rocephin IV 1 gram Narcan 0.4 IV push. Per ER report, the patient has become more responsive, more awake after receiving the above. ER physician discussed with the family as represented by her daughter, Mraty Brito, the above findings and patient's guarded condition. Daughter confirms that the patient is DNR per living will and does not want further dialysis nor aggressive interventions as previously discussed with her PCP, Dr. Elisabeth Talamantes. Given the above condition, family requested for supportive medical management and comfort care only. Daughter is comfortable to stay in [facility], thus admitted. PAST MEDICAL HISTORY: Celiac disease, hypertension, osteoarthritis, urinary incontinence, esophageal spasm and dysmotility, failure to thrive, chronic kidney disease stage 3 secondary to age related nephrosclerosis, history of 6 mm lung nodule found on CT scan in 10/2016, anxiety and insomnia. PAST SURGICAL HISTORY: Right proximal tibia open reduction and internal fixation on 02/24/[address] Roberts. ALLERGIES: CODEINE, LEVOFLOXACIN AND MEPERIDINE. FAMILY HISTORY: Noncontributory. SOCIAL HISTORY: The patient lives with her daughter, Marty Brito is a nurse. She is a nonsmoker. She does not drink alcohol or illicit drug use. She is . MEDICATIONS: 1. Promethazine 25 mg twice daily as needed. 2. Clonidine 0.2 mg b.i.d. 3. Bisacodyl 5 mg p.o. daily. 4. Remeron 15 mg p.o. at bedtime. 5. Ondansetron 8 mg ODT q.6 p.r.n. 6. Ambien 5 mg p.o. at bedtime. 7. Tramadol 100 mg p.o. q.6 hours. 8. Diazepam 5 mg p.o. q.6 hours. 9. Famotidine 20 mg p.o. b.i.d. 10. Robaxin 750 mg p.o. q.4 hours p.r.n. 11. Promethazine 25 mg p.o. q.6 hours. 12. Clonazepam 0.5 mg p.o. b.i.d. 13. Fentanyl 50 mcg per patch every 3 days. 14. Amlodipine 5 mg p.o. daily. 15. Procrit 20,000 units per mL vial every 14 days. 16. Ferrous sulfate 325 mg p.o. b.i.d. 17. Myrbetriq 25 mg p.o. q. day. 18. Simethicone 125 mg p.o. post-prandial and at bedtime. 19. Sodium bicarbonate 325 mg p.o. t.i.d. 20. VESIcare 5 mg p.o. at bedtime. 21. Hydralazine 25 mg p.o. b.i.d. REVIEW OF SYSTEMS: Limited secondary to current cognitive status. Per daughter denies any fever, chills, night sweats, headache, acute visual changes or hearing changes, cold symptoms, chest pain, shortness of breath, edema, cough , pain with breathing, wheezing, acute nausea, vomiting, rectal bleeding, significant dysuria or malodorous urine, hematuria, seizure activity or syncopal episodes. Reports significant general weakness, chronic joint pain and neck pain as well as difficulty walking secondary to unsteady gait from previous ortho surgery. PHYSICAL EXAMINATION: VITAL SIGNS: Blood pressure 161/72, temperature 97.9, pulse 78, respiration rate 18, O2 sats 93% at room air, weight 91 pounds and 2 ounces, height 5 feet 1 inch. GENERAL: The patient is awake, alert, confused, comfortably resting in bed with spontaneous speech. oriented to person and place only. Not in acute distress.Family is at bedside. HEENT: Normocephalic, atraumatic. Pupils are 1-2 mm equally reactive to light. Nonicteric sclerae. No conjunctival erythema. No eye discharge. NECK: Supple. No LAD, no swelling. CHEST: Normal excursion, clear to auscultation bilaterally. CARDIAC: RRR. Normal S1 and S2. No murmurs. ABDOMEN: Flat, soft, normoactive bowel sounds. Nondistended. Reports suprapubic tenderness on direct palpation. No rebound, no guarding. Negative CVA tenderness bilaterally. EXTREMITIES: Thin limbs. No edema. No cyanosis. SKIN: Intact. Poor skin turgor and elasticity. Deep tissue injury noted on the right heel. Stage I pressure ulcer on the left heel. PSYCHIATRIC: Appears calm and cooperative. She easily gets irritated with further queries. LABORATORY DATA: WBC 10.2, hemoglobin 12.2, hematocrit 38.7, and platelets 197, 000. Chemistry: Sodium 138, potassium 4.8, chloride 103, anion gap 23, BUN 57 , creatinine 5.25, and glucose 115. LFTs within normal limits. CK 15. Troponin 0.291. Beta natriuretic peptide 205.8. Albumin 3.7, lipase 10. IMAGING STUDIES: As per HPI. ASSESSMENT: A 77-year-old female with multiple chronic medical conditions including chronic pain syndrome on chronic multiple pain medications , CKD with worsening creatinine.She is not a good candidate for renal dialysis per request. Now with altered mental status, suspicious of improperly taking the pain medications associated with dehydration, malnutrition and urinary tract infection. 1. Altered mental status, multifactorial 2. Complicated urinary tract infection. 3. Dehydration/malnutrition. 4. Elevated cardiac enzymes,,probable acute coronary syndrome, for supportive care only . 5. Chronic pain syndrome and chronic narcotic use, now with questionable improper use of pain medications. 6. Acute on Chronic kidney disease, stage 5. Declined renal dialysis therapy. 7. Non-conclusive abnormal brain CT secondary to motion artifacts. 8. Chronic constipation. 9. Hypertension. 10. Deep tissue injury, right heel. 11. Stage I pressure ulcer in left heel.. 12. Chronic anemia, now with normal hemoglobin and hematocrit, likely secondary to dehydration. 13. History of chronic nausea and vomiting. 14. History of pulmonary nodule by chest CT in 10/2016. PLAN: The patient is admitted to [facility] for supportive medical management only. I had a lengthy discussion with the family today as represented by her daughter, Marty Brito,POA/surrogate decision maker. I discussed and reviewed with the daughter in the presence of her Gerardo, the presence of acute multiorgan processes that may cause severe complications to the patient's current condition. Prognosis remains guarded. Ms Brito verbalizes full understanding. She confirms that patient is DNR and they already had previous discussions with the patient regarding her chronic medical conditions and patient was pretty clear with her decision to no aggressive interventions including renal dialysis,. Daughter also reports that she had discussed this previously with the patient's PCP, Dr. Talamantes and they are all into agreement for supportive care only. Daughter is comfortable keeping the patient in [facility] for supportive management only. We will continue intravenous fluid hydration. We will continue empiric IV antibiotic therapy, pending culture results. Daughter agrees to have repeat lab works in the morning, but we will not repeat EKG. We also discussed the questionable motion related abnormality findings in brain CT and with possible findings of left MCA thrombus, the patient has no other neurologic deficits at this time except for altered mental status, thus daughter is agreeable to hold off repeat brain CT unless the patient's mental status returns baseline to be more cooperative with the exam. . We will continue current medications as modified per list.We will hold all her narcotics or pain medications at this time.Procrit was recently given by the daughter at home a few days ago, but cannot recall the exact day. She will call us back on this. Gastrointestinal prophylaxis with PPI. DVT prophylaxis with SCD. Of note, the patient is not a good candidate for Lovenox secondary to severe renal function. Further recommendations depending on the hospital course. CODE STATUS: DO NOT RESUSCITATE, DO NOT INTUBATE as confirmed by her daughter/ DENISE Brito. Time spent on this encounter 55 minutes. ALEXANDER
[2017-07-26] MEDS: traMADol HCl 50 MG TAB PO PRN (00:26)
[2017-07-26] MEDS: Fleet Enema 133 ML BOT FS SCH ×2 (00:28→08:19)
[2017-07-26] MEDS: Ondansetron ODT 4 MG TAB PO PRN ×3 (02:15→12:54)
[2017-07-26] MEDS: Sodium Chloride 0.9% 1,000 ML IV SCH ×5 (05:29→19:55)
[2017-07-26] MEDS: cefTRIAXone\\ROCEPHIN 1 GM in Sodium Chloride 0.9% 100 ML IVPB SCH (05:30)
[2017-07-26 08:05] LABS: Anion Gap 21 mmol/L (10-20); BUN (Urea Nitrogen) 56 mg/dL (9.8-20.1); Calc. Creatinine Clearance 7 mL/min (70-130); Calcium 6.9 mg/dL (7.8-10.44); Carbon Dioxide 14 mmol/L (23-31); Chloride 111 mmol/L (98-107); Estimated GFR-MDRD 9; Glucose 105 mg/dL (83-110); Potassium 4.2 mmol/L (3.5-5.1); Sodium 142 mmol/L (136-145)
[2017-07-26] MEDS: cloNIDine HCl 0.1 MG TAB PO SCH ×2 (08:19→19:58)
[2017-07-26] MEDS: Sodium Bicarbonate Tab 325 MG TAB PO SCH ×3 (08:20→19:57)
[2017-07-26] MEDS: Ferrous Sulfate 325 MG TAB PO SCH ×2 (08:20→19:59)
[2017-07-26] MEDS: Docusate 100 MG CAP PO SCH ×2 (08:20→19:58)
[2017-07-26 08:29] LABS: Troponin I 0.294 ng/mL (< 0.028)
[2017-07-26 09:01] LABS: CKMB 13.5 ng/mL (0-6.6)
[2017-07-26] MEDS: Simethicone Chewable 80 MG TAB PO SCH ×4 (09:28→19:58)
[2017-07-26] MEDS: TROSPIUM 20 MG TABLET PO SCH (09:28)
[2017-07-26] MEDS: Polyethylene Glycol 3350 17 GM Packet PO SCH ×2 (09:55→12:54)
[2017-07-26] MEDS ORDERED: Polyethylene Glycol 3350 17 GM Packet PO PRN (18:36)
[2017-07-26] MEDS: Pantoprazole 40 MG VIAL IVP SCH (19:56)
[2017-07-27] MEDS: Sodium Chloride 0.9% 1,000 ML IV SCH ×2 (05:25→16:39)
[2017-07-27] MEDS: cefTRIAXone\\ROCEPHIN 1 GM in Sodium Chloride 0.9% 100 ML IVPB SCH (05:26)
[2017-07-27] MEDS ORDERED: Polyethylene Glycol 3350 17 GM Packet PO PRN (06:00)
[2017-07-27] MEDS: cloNIDine HCl 0.1 MG TAB PO SCH ×2 (08:21→21:22)
[2017-07-27] MEDS: Polyethylene Glycol 3350 17 GM Packet PO SCH (08:21)
[2017-07-27] MEDS: Ferrous Sulfate 325 MG TAB PO SCH ×2 (08:21→21:23)
[2017-07-27] MEDS: Docusate 100 MG CAP PO SCH ×2 (08:21→21:22)
[2017-07-27] MEDS: Simethicone Chewable 80 MG TAB PO SCH ×4 (08:22→21:22)
[2017-07-27] MEDS: Sodium Bicarbonate Tab 325 MG TAB PO SCH ×3 (08:22→21:22)
[2017-07-27] MEDS: TROSPIUM 20 MG TABLET PO SCH (08:22)
[2017-07-27] MEDS: Ondansetron ODT 4 MG TAB PO PRN (10:17)
[2017-07-27] MEDS: Famotidine 20 MG TAB PO SCH (21:22)
[2017-07-28] MEDS: traMADol HCl 50 MG TAB PO PRN (04:37)
[2017-07-28] MEDS: Sodium Chloride 0.9% 1,000 ML IV SCH (04:42)
[2017-07-28] MEDS: cefTRIAXone\\ROCEPHIN 1 GM in Sodium Chloride 0.9% 100 ML IVPB SCH (04:45)
[2017-07-28 05:27] LABS: #Basophils 0.1 thou/uL (0.0-0.2); #Eosinphils 0.4 thou/uL (0.0-0.7); #Lymphocytes 1.3 thou/uL (1.20-3.40); #Monocytes 0.6 thou/uL (0.11-0.59); #Neutrophils 4.9 thou/uL (1.40-6.50); %Basophils 0.8 % (0.0-1.0); %Eosinophils 5.2 % (0.0-10.0); %Lymphocytes 18.1 % (21.0-51.0); %Monocytes 8.5 % (0.0-10.0); %Neutrophils 67.5 % (42.0-75.0); Hemoglobin 10.9 g/dL (12.0-16.0); Mean Corpuscular HGB CONC 32.4 g/dL (32.0-36.0); Mean Corpuscular Hemoglobin 30.2 pg (27.0-31.0); Mean Corpuscular Volume 93.1 fl (81.0-99.0); Mean Platelet Volume 7.1 fL (7.4-10.4); Platelet Count 160 thou/uL (130-400); RBC Distribution Width 15.1 % (11.5-14.5); White Blood Cell (WBC) Count 7.2 thou/uL (4.8-10.8)
[2017-07-28 05:46] LABS: ALT (SGPT) 9 U/L (8-55); AST (SGOT) 21 U/L (5-34); Albumin 3.1 g/dL (3.4-4.8); Alkaline Phosphatase 95 U/L (40-150); Anion Gap 20 mmol/L (10-20); BUN (Urea Nitrogen) 49 mg/dL (9.8-20.1); Bilirubin, Total 0.4 mg/dL (0.2-1.2); Calc. Creatinine Clearance 8 mL/min (70-130); Calcium 6.6 mg/dL (7.8-10.44); Carbon Dioxide 12 mmol/L (23-31); Chloride 113 mmol/L (98-107); Estimated GFR-MDRD 11; Globulin 2.7 g/dL (2.4-3.5); Glucose 103 mg/dL (83-110); Potassium 4.1 mmol/L (3.5-5.1); Protein, Total 5.8 g/dL (6.0-8.3); Sodium 141 mmol/L (136-145)
[2017-07-28] MEDS: Ferrous Sulfate 325 MG TAB PO SCH ×2 (08:29→20:19)
[2017-07-28] MEDS: Docusate 100 MG CAP PO SCH ×2 (08:29→20:17)
[2017-07-28] MEDS: Sodium Bicarbonate Tab 325 MG TAB PO SCH ×3 (08:29→20:17)
[2017-07-28] MEDS: Simethicone Chewable 80 MG TAB PO SCH ×4 (08:30→22:26)
[2017-07-28] MEDS: Polyethylene Glycol 3350 17 GM Packet PO SCH ×2 (08:30→08:42)
[2017-07-28] MEDS: cloNIDine HCl 0.1 MG TAB PO SCH ×2 (08:30→20:18)
[2017-07-28] MEDS: Famotidine 20 MG TAB PO SCH (20:17)
[2017-07-29] MEDS: Ondansetron ODT 4 MG TAB PO PRN (03:16)
[2017-07-29 05:28] VITALS: BMI 19.0
[2017-07-29] MEDS ORDERED: Sodium Chloride 0.9% 1,000 ML BAG ONE (05:47)
[2017-07-29] MEDS: cloNIDine HCl 0.1 MG TAB PO SCH (08:15)
[2017-07-29] MEDS: Docusate 100 MG CAP PO SCH (08:17)
[2017-07-29] MEDS: Polyethylene Glycol 3350 17 GM Packet PO SCH (08:18)
[2017-07-29] MEDS: Ferrous Sulfate 325 MG TAB PO SCH (08:18)
[2017-07-29] MEDS: Sodium Bicarbonate Tab 325 MG TAB PO SCH (08:19)
[2017-07-29] MEDS: Simethicone Chewable 80 MG TAB PO SCH ×2 (08:20→13:09)
[2017-07-29] MEDS ORDERED: Cefdinir 300 MG CAP PO SCH (09:00)
[2017-07-29 12:20] VITALS: BP 146/73; TEMP 96.3
--- NOTE | 2017-07-29 18:59 | DIS ---
DATE OF ADMISSION: 07/25/2017 DATE OF DISCHARGE: 07/29/2017 FINAL DIAGNOSES: 1. Altered mental status. 2. Urinary tract infection. 3. Dehydration. 4. Acute on chronic renal failure. 5. Constipation with fecal impaction. 6. Generalized weakness. 7. Hypertension. 8. Failure to thrive. 9. Chronic anemia. 10. Chronic pain. HOSPITAL COURSE: This is a 77-year-old female who known to me in outpatient practice as well as recently in the hospital, who presented to the ER on 07/25/2017. The patient was reportedly found by her daughter to be very lethargic and overly drowsy with questionable mix up of her pain medication. Per the daughter, patient had an old prescription for oral morphine sulfate which she found laying on the floor in her room. She was concerned that she may have been confused any taken some of this old prescription and combined with her current regimen of pain meds. She was administered Narcan in the ER and reportedly became very responsive with this. In addition, the patient was found to have a urinary tract infection as well as significant dehydration and acute on chronic renal failure, warranting inpatient admission. The patient was admitted to the medical floor and started on IV fluids and IV antibiotics with Rocephin. By hospital day #2, she was closer to her baseline, much more alert, and only slightly confused. She additionally was started on a bowel regimen due to the significant constipation and fecal impaction that was found on admission. She subsequently has had multiple large bowel movements and has been up and eating and tolerating her diet and back to her baseline. Other significant findings upon admission, the patient did have a CT scan of her head that showed motion artifact with question of a possible thromboembolism with recommendation to repeat once patient able more alert and able to cooperate. Unfortunately, patient decline any repeat imaging. The patient was recently hospitalized for an extended period for physical therapy after right patellar fracture and was living at home with assistance from her family and was doing outpatient physical therapy, but per the daughter , has been getting progressively weaker and having a very poor appetite. She has struggled with failure to thrive for months now and has had difficulty maintaining her weight and in addition, has struggled with chronic intractable pain due to her arthritis and prior injuries. The patient has been following outpatient with her renal doctor for chronic kidney disease stage 4 that now looks to have progressed due to this recent acute injury to her kidneys. Upon admission here, her creatinine was 5.25 with a GFR of 8 and on hospital day #2, her creatinine improved to 4.0 with a GFR of 11. Given all of her comorbidities as well as her acute issues, lengthy discussions were had with both the patient as well as the daughter, Mao who has medical power of banking attorney and decision was made to pursue comfort care from here on as patient does not want any more physical therapy at this time nor any aggressive interventional measures. She does not want to consider doing hemodialysis for her kidneys at all and would prefer to go home and continue with the comfort care measures that have been provided here in the hospital. On day of discharge , the patient has been up to her bedside chair and has been eating and back to her baseline mentation. Her vital signs have remained stable. She will be continued on additional 6 days of oral antibiotics for her urinary tract infection. We have discontinued her fentanyl narcotic patch as her pain has been well controlled with just the tramadol alone. [facility] has evaluated the patient in the hospital and has deemed her appropriate for hospice and comfort care due to her ongoing renal failure that has progressively worsened, now appearing to be at stage 5. She was discharged home to the care of her daughter. DISCHARGE MEDICATIONS: 1. Amlodipine 5 mg once daily. 2. Cefdinir 300 mg once daily x6 days. 3. Clonidine 0.2 mg twice daily. 4. Colace 100 mg twice daily. 5. Famotidine 20 mg twice daily. 6. Ferrous sulfate 325 mg twice daily. 7. Hydralazine 25 mg twice daily. 8. Zofran 4 mg every 4 hours as needed. 9. MiraLax 17 g p.o. daily as needed for constipation. 10. Sodium bicarbonate 325 mg 3 times a day. 11. Tramadol 50-100 mg every 6 hours as needed. 12. Acetaminophen 325 mg every 4 hours as needed. 13. Simethicone 125 mg every evening as needed. 14. Clonazepam 0.5 mg twice daily as needed for anxiety. 15. Zolpidem 5 mg p.o. at bedtime as needed. DIET: The patient will continue her gluten free renal diet upon discharge. ACTIVITIES: Continue as tolerated with fall risk precautions. FOLLOWUP: The patient will follow up in clinic in 2 weeks as well as continued care with [facility]. ALEXANDER
== END 2017-07-29 14:45 | disposition hospice, home (50) | DRG 690 ==
LOC: MADERS 13:42 → MADMS 16:02
PROVIDERS: ADMIT Family Medicine; ATTEND Family Medicine
DX: N39.0 Urinary tract infection, site not specified (principal); N17.9 Acute kidney failure, unspecified; E46 Unspecified protein-calorie malnutrition; L89.621 Pressure ulcer of left heel, stage 1; N18.5 Chronic kidney disease, stage 5; I12.0 Hypertensive chronic kidney disease with stage 5 chronic kidney disease or end stage renal disease; Z68.1 Body mass index [BMI] 19.9 or less, adult; G89.4 Chronic pain syndrome; K90.0 Celiac disease; R62.7 Adult failure to thrive; R26.81 Unsteadiness on feet; Z79.891 Long term (current) use of opiate analgesic; D63.1 Anemia in chronic kidney disease; Z66 Do not resuscitate; Z51.5 Encounter for palliative care; M19.90 Unspecified osteoarthritis, unspecified site; R32 Unspecified urinary incontinence; N26.9 Renal sclerosis, unspecified; R91.1 Solitary pulmonary nodule; F41.9 Anxiety disorder, unspecified; G47.00 Insomnia, unspecified; Z88.5 Allergy status to narcotic agent; Z88.8 Allergy status to other drugs, medicaments and biological substances; E86.0 Dehydration; K59.09 Other constipation; Y92.019 Unspecified place in single-family (private) house as the place of occurrence of the external cause; T40.2X5A Adverse effect of other opioids, initial encounter
CPT/HCPCS: 36415; 70450; 71010; 74000; 80048; 80053; 81003; 81015; 82553; 83690; 83880; 84484; 85025; 87040; 87077; 87086; 87186; 93005; 94760; 96374; 96375; A4353; C9113; J0696; J2310; J7050; Q0162